=== PATIENT | male | born 1940 | race Caucasian/White ===

== ENCOUNTER 2018-06-05 07:50 | Inpatient (IN) | payer MEDICARE, OTHER, SELFPAY ==
[2018-06-05] VITALS (28 sets, daily range): BP systolic 95–145; BP diastolic 49–89; PULSE 100–127; RESP 12–24; TEMP 36.2–37; O2SAT 92–97; BMI 41.1
--- NOTE | 2018-06-05 08:01 | ED.NAVMDI ---
HPI - Nausea/Vomiting/Diarrhea General Chief complaint: Nausea/Vomiting/Diarrhea Stated complaint: Vomitting since wednesday Time Seen by Provider: 06/05/18 07:58 Source: patient and family Mode of arrival: ambulatory Limitations: no limitations History of Present Illness HPI Narrative: Patient presents with chief complaint of vomiting for the last 2 days. He denies other symptoms. Patient has a history of diabetes, And also states that the patient has a cup at the back of his throat that builds up mucus, and then causes him to vomit the mucus up. She states he has had issues with vomiting mucus for years, and that this was what the doctors told her was the cause. Patient states that he has only been able to take water and his medicines, and that anywhere from 30 sec to 5 min later, everything comes up. This started Wednesday evening at supper time. Patient states that he can always tell if there is any medicine mixed in with what he vomits or not. He has not been eating solid food, but only on occasion sees pill fragments or discoloration of the fluid. Patient states he had a couple of loose stools but has not had any diarrhea. He denies back pain or abdominal pain, other than some strong cramping when he vomits. Patient denies dysuria. No cough or fevers. Patient has not aspirated that he knows of. Patient denies sore throat or upper respiratory symptoms. No chest pain or shortness of breath. No other complaints at this time. No sick contacts. Related Data Home Medications Medication Instructions Recorded Confirmed ferrous sulfate 325 mg PO QDAY #0 08/16/12 06/05/18 finasteride 5 mg PO QDAY #0 08/16/12 06/05/18 lisinopril 10 mg PO QDAY #0 08/16/12 06/05/18 multivitamin 1 tab PO DAILY #0 08/16/12 06/05/18 pioglitazone [Actos] 45 mg PO QDAY #0 08/16/12 06/05/18 sertraline [Zoloft] 50 mg PO QDAY #0 08/16/12 06/05/18 simvastatin [Zocor] 40 mg PO HS #0 08/16/12 06/05/18 triamterene-hydrochlorothiazid 1 tab PO DAILY #0 08/16/12 06/05/18 vitamin B complex 1 cap PO DAILY #0 08/16/12 06/06/18 vitamin E 400 units PO QDAY #0 08/16/12 06/05/18 doxazosin 12 mg PO HS #0 12/23/16 06/05/18 fluticasone-salmeterol [Advair 1 puff INH BID #0 12/23/16 06/06/18 Diskus] insulin aspart U-100 [Novolog 0 unit SQ QIDACHS #0 12/23/16 06/05/18 U-100 Insulin aspart] lidocaine [Lidoderm] 1 patch TOPICAL Q12H #0 12/23/16 06/05/18 metoprolol succinate 50 mg PO BID #0 12/23/16 06/05/18 omeprazole 20 mg PO BID #0 12/23/16 06/05/18 insulin glargine [Lantus Solostar 40 units BID #0 09/07/17 06/05/18 U-100 Insulin] clopidogrel 75 mg tablet 75 mg PO DAILY 03/31/18 06/05/18 loratadine 10 mg tablet 10 mg PO DAILY 03/31/18 06/05/18 Previous Rx's Medication Instructions Recorded oxycodone 10 mg PO QIDP PRN #30 tab 12/23/16 oxycodone [OxyContin] 10 mg PO BID #60 tab 12/23/16 pyridostigmine bromide [Mestinon] 60 mg PO TID #275 tab 09/07/17 fluticasone 50 mcg/actuation nasal 2 spray NASAL DAILY #47.4 gram 01/13/18 spray,suspension Allergies Allergy/AdvReac Type Severity Reaction Status Date / Time ciprofloxacin [From CIPRO] Allergy Severe CAN'T TAKE Verified 06/05/18 08:07 BECAUSE OF MYASTHENIA GRAVIS ibuprofen [IBUPROFEN] Allergy Intermediate Verified 06/05/18 08:07 NSAIDS (Non-Steroidal Allergy Mild Verified 06/05/18 08:07 Anti-Inflamma [NSAIDS (NON-STEROIDAL ANTI-INFLAMMA] Review of Systems Review of Systems All systems reviewed & are unremarkable except as noted in HPI and below Constitutional Denies chills, Denies fever(s), Denies lethargy and Denies weakness Eyes Denies change in vision, Denies eye discharge, Denies irritation and Denies loss of vision ENT Ears, Nose, Mouth, and Throat: Denies change in voice, Denies neck pain and Denies sore throat Cardiovascular Denies chest pain, Denies irregular heart rhythm, Denies lightheadedness, Denies palpitations, Denies dyspnea, Denies dyspnea on exertion and Denies orthopnea Respiratory Denies cough, Denies dyspnea, Denies dyspnea on exertion and Denies wheezing Gastrointestinal Gastrointestinal: Denies abdominal pain, Denies change in bowel habits, Denies diarrhea, Reports nausea and Reports vomiting Genitourinary Denies hematuria, Denies flank pain, Denies urinary incontinence and Denies urinary urgency Musculoskeletal Denies neck pain Integumentary/Breasts Denies pruritus, Denies erythema, Denies rash and Denies wounds Neurologic Denies confusion, Denies loss of vision and Denies weakness Psychiatric Denies anxiety, Denies confusion, Denies depression, Denies homicidal ideation and Denies suicidal ideation Endocrine Denies palpitations Hematologic/Lymphatic Denies easy bruising Allergic/Immunologic Denies wheezing PFSH Medical History Obstructive sleep apnea of adult (Chronic) Primary insomnia (Chronic) Snoring (Chronic) Depression (Acute) Hiatal hernia (Acute) Hypercholesteremia (Acute) Hypertension (Acute) Benign prostatic hyperplasia (Chronic) H/O ischemic heart disease (Chronic) Hearing difficulty of right ear (Chronic) History of lower GI bleeding (Chronic) Hx of upper gastrointestinal hemorrhage (Chronic) Morbid obesity with BMI of 40.0-44.9, adult (Chronic) Myasthenia gravis (Chronic) Spondylolysis, cervical region (Chronic) Spondylosis of lumbar spine (Chronic) Type 2 diabetes mellitus (Chronic) Hx of transient ischemic attack (TIA) (Inactive) Surgical History History of lumbosacral spine surgery (Acute) Hx of cataract removal with insertion of prosthetic lens (Chronic) S/P CABG x 3 (Chronic) Family History: Reviewed 06/05/18 by Morteza Beaulieu MD Social History marital status: details: 50 yrs household members: spouse lives independently: Yes Smoking Status: Former smoker alcohol intake: former Exam Initial Vital Signs Initial Vital Signs: Vital Signs Temperature 97.2 F L 06/05/18 08:01 Pulse Rate 126 H 06/05/18 08:01 Respiratory Rate 20 06/05/18 08:01 Blood Pressure 129/79 06/05/18 08:01 Pulse Oximetry 97 06/05/18 08:01 Const General: cooperative and well developed Nutritional Appearance: well nourished Orientation: alert, awake, oriented x3 and not confused [facility] Head: normocephalic and atraumatic Ears: external ears normal Nose: external nose normal and No nasal discharge Face and sinus: face symmetric Mouth: oral mucosae normal and moist mucous membranes Teeth and gingiva: dentition normal Eyes General: appearance normal, both eyes and all related structures Eyelids: eyelids normal Conjunctivae: conjunctivae normal Sclera: sclerae normal Pupils: PERRL EOM: EOM intact bilaterally Neck Neck: normal visual inspection, trachea midline, No lymphadenopathy, No midline deformity and No JVD Lymphatic: No lymphedema Chest Chest: normal inspection of the chest Resp Effort & Inspection: normal respiratory effort, able to speak in complete sentences, no respiratory distress and no use of accessory muscles Auscultation: clear to auscultation bilaterally, no rales, no rhonchi and no wheezes Cardio Rate: tachycardic Rhythm: regular rhythm Heart Sounds: no click, no gallops, no murmurs and no rubs Pulses: normal peripheral pulses GI Inspection: non-distended Palpation: soft, no hepatosplenomegaly, No guarding, No pulsatile mass and No tender Back/Spine/Pelvis Back: No CVA tenderness Cervical Spine: cervical ROM normal and No pain with cervical ROM Thoracic/Lumbar Spine: thoracic and lumbar spine normal to inspection Skin General: no rashes or lesions noted, No jaundice and No petechiae Neuro General: alert, oriented x3, gait normal and no focal motor deficits Speech: speech normal Extrem General: full ROM, no clubbing, cyanosis or edema, no pedal edema and no calf tenderness Psych Appearance: well kempt Mental Status: mental status grossly normal Attitude: cooperative Thought Content: normal and suicidality Judgment: judgment good Course Course Narrative: Patient remained stable throughout his stay in the emergency department. He was worked up with labs, EKG, chest x-ray, and urinalysis. He was found to be tachycardic on the safety instruction police officer, with a rhythm consistent with atrial flutter. Patient was given a dose of Zofran, as well as a small dose of diltiazem and a L of IV fluids. Patient still complained of nausea so he was then given a dose of Reglan. He continued to have rapid ventricular response, despite the IV fluid and diltiazem, so he was given a larger dose of diltiazem, with no improvement. Patient continued to have heart rate in the 120s. A p.o. challenge was given to the patient with a small amount of water, which the patient promptly vomited. Patient was given a 3rd dose of antiemetics in the form of another dose of Zofran. He was also given IV Lopressor for his rapid ventricular response. At this point, as the patient was not improving, either in his rate in rhythm or in his vomiting, I felt the patient should be admitted to the hospital. He has additionally been found to have a mild UTI, for which we had started him on IV Rocephin. I spoke with Dr. Beaulieu, who was on-call for the hospitalist service, and he agreed to admit the patient to his service. manager cancer interpretation at 8:24 a.m.: Regular ventricular rhythm with a rate in the 120s, narrow complex, saw to baseline. Consistent with atrial flutter with rapid ventricular response as interpreted by ED MD. Orders Ordered: ED Orders 06/06/18 XR acute abdomen series Urgent 06/06/18 04:44 Basic Metabolic Panel Routine Complete Blood Count AUTO DIFF Routine Acetaminophen (Tylenol) 650 mg PO Q6HR PRN PRN Reason: As Needed for Fever/Mild Pain Clopidogrel Bisulfate (Plavix) 75 mg PO DAILY AL[facility] Dextrose (D50w) 25 gm IV PRN PRN; Protocol PRN Reason: Hypoglycemia Doxazosin Mesylate (Cardura) 12 mg PO BEDTIME ALESHA Last Admin: 06/05/18 21:24 Dose: Not Given Enoxaparin Sodium (Lovenox) 40 mg SUBCUT DAILY [facility] Ferrous Sulfate (Ferrous Sulfate) 325 mg PO DAILY AL[facility]HA Finasteride (Proscar) 5 mg PO DAILY [facility] Esmolol HCl (Brevibloc) 2.5 gm in 250 mls @ 0 mls/hr IV TITRATE ALESHA; Protocol Last Admin: 06/06/18 06:25 Dose: 160 mcg/kg/min, 139.344 mls/hr Titration: 06/06/18 06:25 Dose: 160 mcg/kg/min, 139.344 mls/hr Titration: 06/06/18 06:16 Dose: 160 mcg/kg/min, 139.344 mls/hr Admin: 06/06/18 04:42 Dose: 155 mcg/kg/min, 134.99 mls/hr Titration: 06/06/18 04:23 Dose: 145 mcg/kg/min, 126.281 mls/hr Admin: 06/06/18 02:24 Dose: 145 mcg/kg/min, 126.281 mls/hr Titration: 06/06/18 02:24 Dose: 145 mcg/kg/min, 126.281 mls/hr Titration: 06/06/18 01:40 Dose: 145 mcg/kg/min, 126.281 mls/hr Admin: 06/06/18 00:32 Dose: 150 mcg/kg/min, 130.635 mls/hr Titration: 06/06/18 00:30 Dose: 150 mcg/kg/min, 130.635 mls/hr Admin: 06/05/18 22:35 Dose: 150 mcg/kg/min, 130.635 mls/hr Titration: 06/05/18 22:31 Dose: 150 mcg/kg/min, 130.635 mls/hr Admin: 06/05/18 20:36 Dose: 150 mcg/kg/min, 130.635 mls/hr Titration: 06/05/18 20:28 Dose: 150 mcg/kg/min, 130.635 mls/hr Admin: 06/05/18 18:33 Dose: 150 mcg/kg/min, 130.635 mls/hr Titration: 06/05/18 18:33 Dose: 100 mcg/kg/min, 0 mls/hr Titration: 06/05/18 17:00 Dose: 100 mcg/kg/min, 0 mls/hr Admin: 06/05/18 14:50 Dose: 50 mcg/kg/min, 43.545 mls/hr Dextrose/Sodium Chloride (Dextrose 5%-0.9% Ns) 1,000 mls @ 100 mls/hr IV CONT ALESHA Last Admin: 06/06/18 02:24 Dose: 100 mls/hr Infusion: 06/06/18 02:24 Dose: 100 mls/hr Admin: 06/05/18 16:59 Dose: 100 mls/hr Ceftriaxone Sodium/Dextrose (Rocephin) 1 gm in 50 mls @ 100 mls/hr IV Q24H [facility] Insulin Aspart (Novolog Flexpen) 5 unit SUBCUT ACHS [facility] Last Admin: 06/05/18 21:24 Dose: Not Given Admin: 06/05/18 17:05 Dose: 5 unit Insulin Glargine (Lantus Solostar (Pen)) 40 unit SUBCUT BID [facility] Last Admin: 06/05/18 22:07 Dose: 40 unit Levalbuterol HCl (Xopenex) 1.25 mg INH RTBID [facility] Last Admin: 06/06/18 08:03 Dose: 1.25 mg Admin: 06/05/18 20:58 Dose: 1.25 mg Lidocaine (Lidoderm) 1 each TOP Q24H [facility] Last Admin: 06/05/18 17:04 Dose: Not Given Lidocaine (Lidoderm (Remove Patch)) 1 each TOP 0500 [facility] Last Admin: 06/06/18 07:54 Dose: Lisinopril (Zestril) 10 mg PO DAILY [facility] Loratadine (Claritin) 10 mg PO DAILY [facility] Metoprolol Succinate (Toprol Xl) 100 mg PO BID [facility] Last Admin: 06/05/18 18:59 Dose: 100 mg Morphine Sulfate (Morphine Sulfate) 2 mg IV Q6H PRN PRN Reason: Pain, Severe (7-10) Last Admin: 06/06/18 06:25 Dose: 2 mg Admin: 06/06/18 00:37 Dose: 2 mg Multivitamins (Tab-A-Edgar) 1 tab PO DAILY [facility] Stored In Pharmacy 0 each PO . [facility] Nystatin (Nystop) 1 applic TOP BID [facility] Last Admin: 06/05/18 21:25 Dose: Ondansetron HCl (Zofran) 4 mg IV Q4HR PRN PRN Reason: Nausea And Vomiting Last Admin: 06/06/18 04:42 Dose: 4 mg Admin: 06/05/18 17:34 Dose: 4 mg Pantoprazole Sodium (Protonix) 40 mg IV DAILY [facility] Last Admin: 06/05/18 21:27 Dose: 40 mg Pioglitazone HCl (Actos) 45 mg PO DAILY [facility] Pyridostigmine [place] (Mestinon) 60 mg PO TID [facility] Last Admin: 06/05/18 22:08 Dose: Not Given Sertraline HCl (Zoloft) 50 mg PO DAILY [facility] Simvastatin (Zocor) 40 mg PO BEDTIME [facility] Last Admin: 06/05/18 21:25 Dose: Not Given Vitamin E (Vitamin E) 400 unit PO DAILY [facility] Discontinued Medications Diltiazem HCl (Cardizem) 10 mg IV NOW ONE Stop: 06/05/18 08:28 Last Admin: 06/05/18 08:44 Dose: 10 mg Diltiazem HCl (Cardizem) 20 mg IV NOW ONE Stop: 06/05/18 10:00 Last Admin: 06/05/18 10:09 Dose: 20 mg Diltiazem HCl (Cardizem) 20 mg IV NOW ONE Stop: 06/05/18 12:17 Last Admin: 06/05/18 12:38 Dose: 20 mg Diltiazem HCl (Cardizem) 25 mg IV NOW ONE Stop: 06/05/18 13:21 Last Admin: 06/05/18 15:06 Dose: Hydromorphone HCl (Dilaudid) 1 mg IV NOW ONE Stop: 06/05/18 08:59 Last Admin: 06/05/18 09:02 Dose: 1 mg Sodium Chloride (Normal Saline 0.9%) 1,000 mls @ 1,000 mls/hr IV BOLUS ONE Stop: 06/05/18 08:58 Last Infusion: 06/05/18 09:56 Dose: 0 mls/hr Admin: 06/05/18 08:44 Dose: 1,000 mls/hr Diltiazem HCl 125 mg/ Dextrose 125 mls @ 5 mls/hr IV TITRATE ALESHA; Protocol Last Admin: 06/05/18 15:06 Dose: Ceftriaxone Sodium/Dextrose (Rocephin) 2 gm in 50 mls @ 100 mls/hr IV NOW ONE Stop: 06/05/18 13:53 Last Admin: 06/05/18 15:03 Dose: Lidocaine (Lidoderm) 1 each TOP Q12H [facility] Last Admin: 06/05/18 22:11 Dose: Metoclopramide HCl (Reglan) 10 mg IV NOW ONE Stop: 06/05/18 11:20 Last Admin: 06/05/18 12:17 Dose: 10 mg Metoprolol Tartrate (Lopressor) 5 mg IV NOW ONE Stop: 06/05/18 13:49 Last Admin: 06/05/18 13:53 Dose: 5 mg Ondansetron HCl (Zofran) 4 mg IV NOW ONE Stop: 06/05/18 08:00 Last Admin: 06/05/18 08:44 Dose: 4 mg Ondansetron HCl (Zofran) 4 mg IV NOW ONE Stop: 06/05/18 11:52 Last Admin: 06/05/18 12:17 Dose: 4 mg Oxycodone HCl (Oxycontin) 10 mg PO BID [facility] Last Admin: 06/05/18 22:08 Dose: Not Given Oxycodone HCl (Percolone) 10 mg PO QID PRN PRN Reason: Pain, Mild (1-3) Last Admin: 06/05/18 22:50 Dose: 10 mg Pantoprazole Sodium (Protonix) 20 mg PO BID [facility] Vital Signs - 8 hr 06/06/18 02:00 06/06/18 04:00 06/06/18 06:00 Temperature 98.7 F 98.2 F Pulse Rate 110 H 122 H 114 H Respiratory Rate 15 14 26 H Blood Pressure 132/72 115/52 L 140/81 Pulse Oximetry 93 95 94 06/06/18 07:59 06/06/18 08:06 Temperature 98.5 F Pulse Rate 107 H Respiratory Rate 17 Blood Pressure 122/71 Pulse Oximetry 93 97 MDM - Nausea/Vomiting/Diarrhea Medical Records Attestation: I reviewed the patient's medical records. Lab Data Attestation: I reviewed the patient's lab results. Result diagrams: 06/06/18 04:44 06/06/18 04:44 Lab Results 06/05/18 06/05/18 06/05/18 Range/Units 08:30 08:30 11:14 WBC 14.1 H (4.5-11.0) X10^3/uL RBC 4.44 L (4.5-5.9) X10^6/uL Hgb 13.6 (13.5-17.5) g/dL Hct 40.9 L (41-53) % MCV 92.2 (80-100) fL MCH 30.6 (26-34) PG MCHC 33.2 (30-36) % RDW 14.3 (11.6-14.8) % Plt Count 235 (150-400) X10^3/uL Neut % (Auto) 82.0 H (50-75) % Lymph % (Auto) 9.7 L (25-40) % [place] % (Auto) 7.8 (3-14) % Eos % (Auto) 0.2 L (2-4) % Baso % (Auto) 0.3 (0-2) % Neut # (Auto) 35928 H (5141-2338) /uL Total Counted Seg Neutrophils % (38-70) % Lymphocytes % (Manual) (25-45) % Monocytes % (Manual) (2-11) % Eosinophils % (Manual) (2-4) % Neutrophils # (Manual) (4399-5426) /uL RBC Morphology Sodium 140 (137-145) mmol/L Potassium 3.7 (3.4-5.1) mmol/L Chloride 102 (98-107) mmol/L Carbon Dioxide 26 (22-32) mmol/L BUN 28 H (9-20) mg/dL Creatinine 1.20 (0.66-1.25) mg/dL Estimated GFR 58.6 L (>60) mL/min BUN/Creatinine Ratio 23.3 H (6-22) Glucose 180 H (80-110) mg/dL Calcium 9.3 (8.4-10.2) mg/dL Total Bilirubin 1.1 (0.2-1.3) mg/dL AST 40 (17-59) IU/L ALT 29 (21-72) IU/L Alkaline Phosphatase 78 (38-126) U/L Troponin I (0.01-0.034) ng/mL Total Protein 8.1 (6.3-8.2) g/dL Albumin 4.9 (3.5-5.0) g/dL Globulin 3.2 (1.7-4.1) g/dL Albumin/Globulin Ratio 1.5 (1.0-2.8) Urine Color Yellow Urine Appearance Clear Urine pH 5.0 (4.5-8.0) Ur Specific [place] 1.025 (1.000-1.035) Urine Protein 1+ H (Negative) Urine Glucose (UA) Negative (Normal) g/dL Urine Ketones Trace H (NEGATIVE) Urine Occult Blood 1+ H (Negative) Urine Nitrate Negative (Negative) Urine Bilirubin 1+ H (NEGATIVE) Urine Ictotest Negative (Negative) Urine Urobilinogen 0.2 (0.2) E.U./dL Ur Leukocyte Esterase Trace H (NEGATIVE) Urine RBC 5-10/hpf H (0-5/HPF) Urine WBC 5-10/hpf H (0-5/HPF) Ur Squamous Epith Cells 1-5 /hpf Urine Bacteria Few (2-10) H (None) Hyaline Casts 10-30/lpf (None) Granular Casts 1-5/lpf (None) Ur Culture Indicated? Specimen cultured Micro UA Comment Not Reportable Nasal Screen MRSA (PCR) (Negative) Influenza A & B (PCR) (Negative) 06/05/18 06/05/18 06/06/18 Range/Units 15:00 17:00 04:44 WBC 16.1 H (4.5-11.0) X10^3/uL RBC 4.28 L (4.5-5.9) X10^6/uL Hgb 13.1 L (13.5-17.5) g/dL Hct 40.2 L (41-53) % MCV 94.0 (80-100) fL MCH 30.5 (26-34) PG MCHC 32.5 (30-36) % RDW 14.5 (11.6-14.8) % Plt Count 224 (150-400) X10^3/uL Neut % (Auto) Not Reportable (50-75) % Lymph % (Auto) Not Reportable (25-40) % [place] % (Auto) Not Reportable (3-14) % Eos % (Auto) Not Reportable (2-4) % Baso % (Auto) Not Reportable (0-2) % Neut # (Auto) (5359-2847) /uL Total Counted 100 Seg Neutrophils % 67.0 (38-70) % Lymphocytes % (Manual) 17.0 L (25-45) % Monocytes % (Manual) 13.0 H (2-11) % Eosinophils % (Manual) 3.0 (2-4) % Neutrophils # (Manual) 07890 H (3870-7785) /uL RBC Morphology Normal morphology Sodium (137-145) mmol/L Potassium (3.4-5.1) mmol/L Chloride (98-107) mmol/L Carbon Dioxide (22-32) mmol/L BUN (9-20) mg/dL Creatinine (0.66-1.25) mg/dL Estimated GFR (>60) mL/min BUN/Creatinine Ratio (6-22) Glucose (80-110) mg/dL Calcium (8.4-10.2) mg/dL Total Bilirubin (0.2-1.3) mg/dL AST (17-59) IU/L ALT (21-72) IU/L Alkaline Phosphatase (38-126) U/L Troponin I 0.028 (0.01-0.034) ng/mL Total Protein (6.3-8.2) g/dL Albumin (3.5-5.0) g/dL Globulin (1.7-4.1) g/dL Albumin/Globulin Ratio (1.0-2.8) Urine Color Urine Appearance Urine pH (4.5-8.0) Ur Specific [place] (1.000-1.035) Urine Protein (Negative) Urine Glucose (UA) (Normal) g/dL Urine Ketones (NEGATIVE) Urine Occult Blood (Negative) Urine Nitrate (Negative) Urine Bilirubin (NEGATIVE) Urine Ictotest (Negative) Urine Urobilinogen (0.2) E.U./dL Ur Leukocyte Esterase (NEGATIVE) Urine RBC (0-5/HPF) Urine WBC (0-5/HPF) Ur Squamous Epith Cells Urine Bacteria (None) Hyaline Casts (None) Granular Casts (None) Ur Culture Indicated? Micro UA Comment Nasal Screen MRSA (PCR) Negative for mrsa (Negative) Influenza A & B (PCR) Negative (Negative) 06/06/18 Range/Units 04:44 WBC (4.5-11.0) X10^3/uL RBC (4.5-5.9) X10^6/uL Hgb (13.5-17.5) g/dL Hct (41-53) % MCV (80-100) fL MCH (26-34) PG MCHC (30-36) % RDW (11.6-14.8) % Plt Count (150-400) X10^3/uL Neut % (Auto) (50-75) % Lymph % (Auto) (25-40) % [place] % (Auto) (3-14) % Eos % (Auto) (2-4) % Baso % (Auto) (0-2) % Neut # (Auto) (5695-8370) /uL Total Counted Seg Neutrophils % (38-70) % Lymphocytes % (Manual) (25-45) % Monocytes % (Manual) (2-11) % Eosinophils % (Manual) (2-4) % Neutrophils # (Manual) (9469-6896) /uL RBC Morphology Sodium 141 (137-145) mmol/L Potassium 4.1 (3.4-5.1) mmol/L Chloride 105 (98-107) mmol/L Carbon Dioxide 25 (22-32) mmol/L BUN 24 H (9-20) mg/dL Creatinine 1.10 (0.66-1.25) mg/dL Estimated GFR > 60.0 (>60) mL/min BUN/Creatinine Ratio 21.8 (6-22) Glucose 143 H (80-110) mg/dL Calcium 8.6 (8.4-10.2) mg/dL Total Bilirubin (0.2-1.3) mg/dL AST (17-59) IU/L ALT (21-72) IU/L Alkaline Phosphatase (38-126) U/L Troponin I (0.01-0.034) ng/mL Total Protein (6.3-8.2) g/dL Albumin (3.5-5.0) g/dL Globulin (1.7-4.1) g/dL Albumin/Globulin Ratio (1.0-2.8) Urine Color Urine Appearance Urine pH (4.5-8.0) Ur Specific [place] (1.000-1.035) Urine Protein (Negative) Urine Glucose (UA) (Normal) g/dL Urine Ketones (NEGATIVE) Urine Occult Blood (Negative) Urine Nitrate (Negative) Urine Bilirubin (NEGATIVE) Urine Ictotest (Negative) Urine Urobilinogen (0.2) E.U./dL Ur Leukocyte Esterase (NEGATIVE) Urine RBC (0-5/HPF) Urine WBC (0-5/HPF) Ur Squamous Epith Cells Urine Bacteria (None) Hyaline Casts (None) Granular Casts (None) Ur Culture Indicated? Micro UA Comment Nasal Screen MRSA (PCR) (Negative) Influenza A & B (PCR) (Negative) Point of Care Testing Glucose POC 143 ECG Data Attestation: I personally reviewed and interpreted this ECG as follows: ( see below) Interpretation: 12 lead EKG performed at 8:06 a.m. on June 05, 2018: Regular ventricular rhythm with a rate of 125 beats per minute FL interval undetectable QRS duration 132 milliseconds QTC interval [address] T wave changes Intraventricular conduction delay Interpretation: Atrial flutter with rapid ventricular response; intraventricular conducti.on delay; possible lateral [place], probably old; inferior [place]; probably old. Abnormal EKG as interpreted by ED MD Discharge Plan Departure Patient Disposition: Admitted As Inpatient Clinical Impression: Atrial fibrillation with RVR, Intractable vomiting, Acute UTI Discharge Date/Time: 06/05/18 14:40 Interventions: ED Discharge Assessment Last Done: 06/05/18 14:22 Admit Date/Time: 06/05/18 13:34 Admit Provider: Morteza Beaulieu
--- NOTE | 2018-06-05 08:27 | DI.RAD.S_ITS ---
PROCEDURE: XR CHEST 1V INDICATIONS: vomiting, possible aspiration TECHNIQUE: One view of the chest was acquired. COMPARISON: [facility], , CHEST 1 VIEW, 12/22/2016, 21:56. [facility], , CHEST 2 VIEW, 11/30/2016, 17:06. FINDINGS: Surgical changes and devices: Sternotomy wires, presumed prior CABG. Lungs and pleura: No pleural effusions or pneumothorax. Lungs are unchanged with a chronic interstitial prominence and no pneumonia or aspiration is found.. Mediastinum: Mediastinal contours appear normal. Heart size is normal. Bones and chest wall: No suspicious bony lesions. Overlying soft tissues appear unremarkable. IMPRESSION: Prior CABG, chronic interstitial prominence, no definite acute disease. No aspiration seen. Dictated by: Mulugeta Snow M.D. on 06/05/2018 at 9:02 Approved by: Mulugeta Snow M.D. on 06/05/2018 at 9:03
[2018-06-05 08:42] LABS: Add Manual Diff / Slide Review NO; Basophils Percent Auto 0.3 % (0-2); Eosinophils Percent Auto 0.2 % (2-4); Hematocrit 40.9 % (41-53); Hemoglobin 13.6 g/dL (13.5-17.5); Lymphocytes Percent Auto 9.7 % (25-40); Mean Corpuscular HGB Conc 33.2 % (30-36); Mean Corpuscular Hemoglobin 30.6 PG (26-34); Mean Corpuscular Volume 92.2 fL (80-100); Monocytes Percent Auto 7.8 % (3-14); Neutrophils Absolute Auto 11500 /uL (3000-5900); Platelet Count 235 X10^3/uL (150-400); Red Blood Cell Count 4.44 X10^6/uL (4.5-5.9); Red Cell Distribution Width 14.3 % (11.6-14.8); White Blood Cell Count 14.1 X10^3/uL (4.5-11.0)
[2018-06-05] MEDS: SODIUM CHLORIDE 0.9% 1,000 ML 1000 ML IV (08:44)
[2018-06-05] MEDS: dilTIAZem 5 MG/ML SDV 10 MG IV (08:44)
[2018-06-05] MEDS: ONDANSETRON 4 MG/2 ML INJ IV ×3 (08:44→17:34)
--- NOTE | 2018-06-05 08:50 | PC.NURSE ---
pt reports, body aches, nausea with vomiting and soft stools, denies fever, chills, with some cough had flu shot last month. denies other sxs.
[2018-06-05 08:52] LABS: Alanine Aminotransferase 29 IU/L (21-72); Albumin 4.9 g/dL (3.5-5.0); Albumin Globulin Ratio 1.5 (1.0-2.8); Alkaline Phosphatase 78 U/L (38-126); Aspartate Aminotransferase 40 IU/L (17-59); BUN Creatinine Ratio 23.3 (6-22); Bilirubin Total 1.1 mg/dL (0.2-1.3); Blood Urea Nitrogen 28 mg/dL (9-20); Calcium 9.3 mg/dL (8.4-10.2); Carbon Dioxide 26 mmol/L (22-32); Chloride 102 mmol/L (98-107); Estimated Glomerular Filt Rate 58.6 mL/min (>60); Globulin 3.2 g/dL (1.7-4.1); Glucose 180 mg/dL (80-110); HEMOLYSIS < 15 (0-50); Potassium 3.7 mmol/L (3.4-5.1); Sodium 140 mmol/L (137-145); Total Protein 8.1 g/dL (6.3-8.2)
[2018-06-05] MEDS: HYDROMORPHONE 1 MG INJ IV (09:02)
--- NOTE | 2018-06-05 09:07 | PC.NURSE ---
pt reports, generalized body soreness with movement, pt unable to keep his oxycodone due to nausea for a couple of days.
[2018-06-05] MEDS: dilTIAZem 5 MG/ML SDV 20 MG IV ×2 (10:09→12:38)
[2018-06-05 11:17] LABS: Appearance Urine UA CLEAR; Bilirubin Urine UA 1+ (NEGATIVE); Color Urine UA YELLOW; Glucose Urine UA NEGATIVE (Normal); Ketones Urine UA TRACE (NEGATIVE); Leukocyte Esterase Urine UA TRACE (NEGATIVE); Nitrite Urine UA NEGATIVE (Negative); Occult Blood Urine UA 1+ (Negative); Protein Urine UA 1+ (Negative); Specific Gravity Urine UA 1.025 (1.000-1.035); Urobilinogen Urine UA 0.2 E.U./dL (0.2)
[2018-06-05 11:32] LABS: Bacteria Urine Few (2-10); Culture Indicated Urine Specimen Cultured; Granular Casts Urine 1-5/LPF; Hyaline Casts Urine 10-30/LPF; Ictotest Urine Negative (Negative); RBC Urine 5-10/HPF (0-5/HPF); Squamous Epithelial Cell Urine 1-5 /HPF; WBC Urine 5-10/HPF (0-5/HPF)
[2018-06-05] MEDS: METOCLOPRAMIDE 10 MG/2 ML INJ IV (12:17)
--- NOTE | 2018-06-05 12:26 | PC.NURSE ---
pt complained of chest pain the kind that brought me in today repeat EKG done and given to Dr. Yee. pt stable vs unchanged.
[2018-06-05] MEDS: METOPROLOL TARTRATE 5 MG/5 ML INJ IV (13:53)
[2018-06-05] MEDS: ESMOLOL 2.5 GM/250 ML IV.SOLN IV ×4 (14:50→22:35)
[2018-06-05 16:08] LABS: Influenza A and B by PCR Rapid Negative (Negative)
--- NOTE | 2018-06-05 16:49 | P.HP_ITS ---
History of Present Illness Date Patient Seen: 06/05/18 Chief complaint: Vomitting since wednesday Narrative: This is a 77-year-old male who has been vomiting for about 4 days. It began in the evening and has led to him not being able to keep down his medication etc. There has been no diarrhea, coughing, abdominal pain, fever, chills or rectal bleeding. The UA is moderately abnormal suggestive of a UTI and he is in atrial fibrillation with rapid ventricular response possibly related to not being able to retain the metoprolol that he usually takes. No other cause of the vomiting/illnesses can be immediately identified this evening. He lives in [place] with his and attends with Dr. Pugh An esmolol drip substantially reduces his heart rate and he appears to be otherwise stable without vomiting after admission to the ICU. IV fluid and antiemetics seem to be fairly effective for him. The 1st doses of Zofran and Reglan however did not control his vomiting, thus the admission. An EKG and Troponin are pending but there have been no signs of an acute ND or ACS. He is not aware of having had atrial fibrillation before and it is not on his populated list. Patient History Medical History Obstructive sleep apnea of adult (Chronic) Primary insomnia (Chronic) Snoring (Chronic) Benign prostatic hyperplasia (Chronic) H/O ischemic heart disease (Chronic) Hearing difficulty of right ear (Chronic) History of lower GI bleeding (Chronic) Hx of upper gastrointestinal hemorrhage (Chronic) Morbid obesity with BMI of 40.0-44.9, adult (Chronic) Myasthenia gravis (Chronic) Spondylolysis, cervical region (Chronic) Spondylosis of lumbar spine (Chronic) Type 2 diabetes mellitus (Chronic) Hx of transient ischemic attack (TIA) (Inactive) Surgical History History of lumbosacral spine surgery (Acute) Hx of cataract removal with insertion of prosthetic lens (Chronic) S/P CABG x 3 (Chronic) Family & Social History Family History: Reviewed 06/05/18 by Morteza Beaulieu MD Social History: household members spouse Prior Living Arrangements Mobile home lives independently Yes Safety & Behavioral: Feels Safe in Current Yes Environment Been Physically Hurt or No Threatened By a Person Suicidal Ideation Description None Tobacco & Substance use: Smoking Status Former smoker alcohol intake former alcohol intake frequency 0-2 drinks per day Substance Use Type does not use Meds Home Medications Medication Instructions Recorded Confirmed Type CA PANTOTHENATE/FOLIC ACID/VIT 1 tab PO QDAY #0 08/16/12 06/05/18 History (MULTIVITAMIN) FERROUS SULFATE 325 mg PO QDAY #0 08/16/12 06/05/18 History VITAMIN B COMPLEX (Vitamin B #0 08/16/12 History Complex) Vitamin E (VITAMIN E) 400 units PO QDAY #0 08/16/12 06/05/18 History finasteride 5 mg PO QDAY #0 08/16/12 06/05/18 History lisinopril 10 mg PO QDAY #0 08/16/12 06/05/18 History pioglitazone [Actos] 45 mg PO QDAY #0 08/16/12 06/05/18 History sertraline [Zoloft] 50 mg PO QDAY #0 08/16/12 06/05/18 History simvastatin [Zocor] 40 mg PO HS #0 08/16/12 06/05/18 History triamterene-hydrochlorothiazid 1 tab PO DAILY #0 08/16/12 06/05/18 History doxazosin 12 mg PO HS #0 12/23/16 06/05/18 History fluticasone-salmeterol [Advair 1 puff INH BID #0 12/23/16 History Diskus] insulin aspart U-100 [Novolog 0 unit SQ QIDACHS #0 12/23/16 06/05/18 History U-100 Insulin aspart] lidocaine [Lidoderm] 1 patch TOPICAL Q12H #0 12/23/16 06/05/18 History metoprolol succinate 50 mg PO BID #0 12/23/16 06/05/18 History omeprazole 20 mg PO BID #0 12/23/16 06/05/18 History oxycodone 10 mg PO QIDP PRN #30 tab 12/23/16 06/05/18 Rx oxycodone [OxyContin] 10 mg PO BID #60 tab 12/23/16 06/05/18 Rx insulin glargine [Lantus Solostar 40 units BID #0 09/07/17 06/05/18 History U-100 Insulin] pyridostigmine bromide [Mestinon] 60 mg PO TID #275 tab 09/07/17 06/05/18 Rx fluticasone 50 mcg/actuation nasal 2 spray NASAL DAILY #47.4 gram 01/13/18 Rx spray,suspension clopidogrel 75 mg tablet 75 mg PO DAILY 03/31/18 06/05/18 History loratadine 10 mg tablet 10 mg PO DAILY 03/31/18 06/05/18 History Allergies Allergy/AdvReac Type Severity Reaction Status Date / Time ciprofloxacin [From CIPRO] Allergy Severe CAN'T TAKE Verified 06/05/18 08:07 BECAUSE OF MYASTHENIA GRAVIS ibuprofen [IBUPROFEN] Allergy Intermediate Verified 06/05/18 08:07 NSAIDS (Non-Steroidal Allergy Mild Verified 06/05/18 08:07 Anti-Inflamma [NSAIDS (NON-STEROIDAL ANTI-INFLAMMA] Review of Systems Review of Systems Positive for vomiting, nausea, weakness. Negative for chest pain, palpitations , chest pain, abdominal pain, diarrhea, bleeding, dysuria, joint pain above his chronic levels, seizures, headaches, new allergies, fevers All systems reviewed & are unremarkable except as noted in HPI and below Exam Vital Signs (past 8 hours): - 06/05/18 08:01 06/05/18 08:44 06/05/18 09:02 Temperature 97.2 F L 98.4 F Pulse Rate 126 H 124 H Respiratory Rate 20 Blood Pressure 129/79 127/72 Blood Pressure [Left Arm] Pulse Oximetry 97 06/05/18 09:04 06/05/18 09:55 06/05/18 10:09 Temperature 98.1 F Pulse Rate 106 H 124 H 124 H Respiratory Rate 14 16 Blood Pressure 120/65 Blood Pressure [Left Arm] 127/72 Pulse Oximetry 95 97 06/05/18 10:42 06/05/18 11:00 06/05/18 11:30 Temperature Pulse Rate 107 H 124 H 123 H Respiratory Rate 24 19 15 Blood Pressure Blood Pressure [Left Arm] 121/61 121/61 120/62 Pulse Oximetry 94 06/05/18 12:00 06/05/18 12:30 06/05/18 12:38 Temperature Pulse Rate 124 H 125 H 123 H Respiratory Rate 16 18 Blood Pressure 143/56 H Blood Pressure [Left Arm] 145/65 H 143/56 H Pulse Oximetry 97 96 06/05/18 13:00 06/05/18 13:30 06/05/18 14:00 Temperature Pulse Rate 127 H 127 H 124 H Respiratory Rate 18 12 18 Blood Pressure Blood Pressure [Left Arm] 127/60 133/68 110/89 Pulse Oximetry 92 93 93 06/05/18 15:26 Temperature 98.3 F Pulse Rate 123 H Respiratory Rate 20 Blood Pressure 123/63 Blood Pressure [Left Arm] Pulse Oximetry Oxygen Delivery Method Room Air Narrative Exam Narrative: Alert and oriented x3. No apparent distress. Pupils are equally round and reactive to light and accommodation. Extraocular muscles are intact. Sclerae are pink and nonicteric. Throat looks normal. No lymph nodes are felt head, neck, supraclavicular area. No carotid bruits are heard. JVD is less 6 cm. There is no thyromegaly. Heart is tachycardic, regular rhythm with early beats. Not classically AFib to my ear. Lungs clear to auscultation bilaterally. Abdomen soft, mildly tender diffusely, bowel sounds active, no organomegaly. Extremities have no ankle edema. Neuro, cranial nerves 2-12 tested intact motor is 4/5 throughout, DTRs are symmetrical, there is no tremor, Babinski's are downgoing bilaterally, balance and gait are not tested. Skin without rash or jaundice. Objective Labs Result Diagrams: 06/05/18 08:30 06/05/18 08:30 Labs: Laboratory Results - last 24 hr 06/05/18 06/05/18 06/05/18 08:30 08:30 11:14 WBC 14.1 H RBC 4.44 L Hgb 13.6 Hct 40.9 L MCV 92.2 MCH 30.6 MCHC 33.2 RDW 14.3 Plt Count 235 Neut % (Auto) 82.0 H Lymph % (Auto) 9.7 L [place] % (Auto) 7.8 Eos % (Auto) 0.2 L Baso % (Auto) 0.3 Neut # (Auto) 26702 H Sodium 140 Potassium 3.7 Chloride 102 Carbon Dioxide 26 BUN 28 H Creatinine 1.20 Estimated GFR 58.6 L BUN/Creatinine Ratio 23.3 H Glucose 180 H Calcium 9.3 Total Bilirubin 1.1 AST 40 ALT 29 Alkaline Phosphatase 78 Total Protein 8.1 Albumin 4.9 Globulin 3.2 Albumin/Globulin Ratio 1.5 Urine Color Yellow Urine Appearance Clear Urine pH 5.0 Ur Specific [place] 1.025 Urine Protein 1+ H Urine Glucose (UA) Negative Urine Ketones Trace H Urine Occult Blood 1+ H Urine Nitrate Negative Urine Bilirubin 1+ H Urine Ictotest Negative Urine Urobilinogen 0.2 Ur Leukocyte Esterase Trace H Urine RBC 5-10/hpf H Urine WBC 5-10/hpf H Ur Squamous Epith Cells 1-5 /hpf Urine Bacteria Few (2-10) H Hyaline Casts 10-30/lpf Granular Casts 1-5/lpf Ur Culture Indicated? Specimen cultured Micro UA Comment Not Reportable Influenza A & B (PCR) 06/05/18 15:00 WBC RBC Hgb Hct MCV MCH MCHC RDW Plt Count Neut % (Auto) Lymph % (Auto) [place] % (Auto) Eos % (Auto) Baso % (Auto) Neut # (Auto) Sodium Potassium Chloride Carbon Dioxide BUN Creatinine Estimated GFR BUN/Creatinine Ratio Glucose Calcium Total Bilirubin AST ALT Alkaline Phosphatase Total Protein Albumin Globulin Albumin/Globulin Ratio Urine Color Urine Appearance Urine pH Ur Specific [place] Urine Protein Urine Glucose (UA) Urine Ketones Urine Occult Blood Urine Nitrate Urine Bilirubin Urine Ictotest Urine Urobilinogen Ur Leukocyte Esterase Urine RBC Urine WBC Ur Squamous Epith Cells Urine Bacteria Hyaline Casts Granular Casts Ur Culture Indicated? Micro UA Comment Influenza A & B (PCR) Positive, type a A Assessment & Plan (1) Atrial fibrillation with RVR: Problem details: Continue IV esmolol, probably over night and transition to other approaches in the morning if he remains stable. Echocardiogram to be ordered This is probably a result of the vomiting and not the primary cause but it would be prudent to do a troponin and rule out acute coronary syndrome. Current visit: Yes Status: Acute (2) Intractable vomiting: Problem details: Continue IV fluids and antiemetics. So far he seems to be tolerating oral intake now that he has been admitted. The influenza a test is officially reported as negative but shows up in a confusing/contradictory fashion on this document as possibly positive. That will need to be clarified. Qualifiers: Nausea presence: with nausea Vomiting type: unspecified Qualified Code (s): R11.2 - Nausea with vomiting, unspecified Current visit: Yes Status: Acute (3) Acute UTI: Problem details: Continue IV Rocephin 1 g Q 24 hr, pending urine culture results Current visit: Yes Status: Acute (4) Obstructive sleep apnea of adult: Problem details: 2004 Current visit: No Status: Chronic (5) Myasthenia gravis: Problem details: Continue routine pyridostigmine Current visit: Yes Status: Acute Quality VTE Deep Vein Thrombosis/Pulmonary Embolism Present on Admission: No
[2018-06-05] MEDS: DEXTROSE 5%-0.9% NS 1,000 ML 100 ML IV (16:59)
[2018-06-05] MEDS: INSULIN ASPART 100 UNIT/ML INSULN PEN SUBCUT (17:05)
[2018-06-05 17:44] LABS: Troponin I 0.028 ng/mL (0.01-0.034)
--- NOTE | 2018-06-05 17:45 | PC.NURSE ---
Addendum entered by Pepper Adan R.N. 06/05/18 23:02: 2245 - Pt sitting on edge of bed. C/o pain to bilateral hips. Attempt to given percolone IR and have pt dissolve under tongue rather than swallow. Pt held under tongue for a couple of minutes before saying that they were not going anywhere, and swallowing the pills. Pt with immediate gag and emesis of approximately 50cc of clear liquid. No visible pills in emesis. VIDEO PRODUCTION ASSISTANT notified. Original Note: Addendum entered by Pepper Adan R.N. 06/05/18 20:39: 1915 - Pt sitting up on edge of bed, moist cough. Anterior airway wheezing. Pt unable to recall type of home inhaler. States that it is not purple, it is a red puffer, not listed on home med list. VIDEO PRODUCTION ASSISTANT notified. Order for RT eval and treat. Room air sats 95% at rest. RT also notified that home C-pap in room. Also, reviewed esmolol gtt, yeast-type rash to groin, and inability to take PO meds at this time r/t nausea and emesis. Original Note: Addendum entered by Pepper Adan R.N. 06/05/18 19:19: 1900 - Attempt to give pt his PO metoprolol while nausea medication is on board. Pt states I swallow and it feels like it doesn't go down. 1914 - pt with 75cc of clear emesis and small amount of sputum. No visible residual pill. Pt on 150mcg/kg/min of esmolol. HR 94, BP 109/56. Original Note: Addendum entered by Pepper Adan R.N. 06/05/18 18:35: 1830 - Pt requesting ice chips, I am dying of thirst encouraged slow intake. HR remains in the 120's. Gtt titrated up to 150mcg/kg/min. Monitor. Original Note: 1644 - Pt orders clarified with Dr. Hauser. Goal for esmolol gtt, HR <110. Currently 120's, titrated up to 100mcg/kg/min. Monitor. 1700 - Pt denies nausea, requesting meal. Encourage pt for slow intake. Offered broth or jello, pt declined request meal provided by kitchen. Pt able to take a few bites, however he then began having emesis. State that it feels like a bubble. Rubbing epigastric area. Pt takes a sip of water and again has emesis. Zofran given. Water cup removed for the time being. Pt request to call . Encourage pt to wait for nausea medication, pt states that he is feeling better. Assist to call , while on phone pt had another episode of emesis. Spoke with on phone, reinforced treatment plan. BP variable during emesis, IVF infusing. Pt feels warm to touch however a-febril per temporal thermometer. Monitor.
[2018-06-05] MEDS: METOPROLOL ER 50 MG TABLET 100 MG PO (18:59)
[2018-06-05] MEDS: LEVALBUTEROL 1.25 MG/0.5 ML NEB INH (20:58)
[2018-06-05] MEDS: PANTOPRAZOLE 40 MG VIAL IV (21:27)
[2018-06-05] MEDS: INSULIN GLARGINE 100 UNIT/ML 3ML PEN 40 UNIT SUBCUT (22:07)
[2018-06-05] MEDS: OXYCODONE IR 5 MG TABLET 10 MG PO (22:50)
[2018-06-06] VITALS (18 sets, daily range): BP systolic 115–147; BP diastolic 48–94; PULSE 65–123; RESP 14–26; TEMP 36.5–37.2; O2SAT 91–97
--- NOTE | 2018-06-06 | DI.RAD.S_ITS ---
PROCEDURE: XR ACUTE ABDOMEN SERIES INDICATIONS: abdominal pain, flank pain, dyspepsia, hypoactive BS TECHNIQUE: One view chest and two views of the abdomen were acquired. COMPARISON: None. FINDINGS: Surgical changes and devices: Sternal wires and hilar clips. Chest: Lungs are clear. Heart size is mildly enlarged. No pleural effusions. No pneumoperitoneum. Abdomen: Bowel gas pattern is normal. No suspicious calcifications. Visualized solid organ contours appear normal. Bones: No suspicious bony lesions. IMPRESSION: Cardiomegaly with increased vascularity. No calcifications overlying the renal shadows. Dictated by: Suha Ruano M.D. on 06/06/2018 at 9:59 Approved by: Suha Ruano M.D. on 06/06/2018 at 10:12
--- NOTE | 2018-06-06 | DI.ECHO.S_ITS ---
[facility]---------+ [facility] +---------+ : : [address] : : : : [id number] : : : : Phone: [phone] Echocardiogram Report + + :Name: KAYLIE MONAE Study Date: 06/07/2018 Height: 74 in : :[facility] Exam Location: IS Weight: 320 lb : : Gender: Male BSA: 2.7 m2 : :: 1940 Age: 77 yrs BP: 144/60 mmHg: :Reason For Study: AFIB : : Performed By: Froylan Jimenez : :Referring: ROHIT SCHWARZ : + + Interpretation Summary The left ventricle is normal in size. The ejection fraction is estimated to be 60-65%. There are no focal wall motion abnormalities. The left atrium is moderately dilated. There is moderate mitral regurgitation. The right ventricular systolic pressure is estimated to be at least 31 mmHg based on an estimated right atrial pressure of 8 mm Hg. There is no prior echocardiogram noted for this patient. No other echocardiographic abnormalities seen. Procedure: A two-dimensional transthoracic echocardiogram with color flow and Doppler was performed. There is no prior echocardiogram noted for this patient. The study quality was technically adequate. The patient was in normal sinus rhythm during the exam. The patient had frequent PACs during the exam. Left Ventricle: The left ventricle is normal in size. There is borderline concentric left ventricular hypertrophy. The ejection fraction is estimated to be 60-65%. There are no focal wall motion abnormalities. Diastolic function could not be accurately assessed due to atrial fibrillation. Right Ventricle: The right ventricle is not well visualized. The right ventricle is grossly normal size. Right ventricular function cannot be assessed due to poor image quality. Atria: The left atrium is moderately dilated. The right atrium is mildly dilated. The interatrial septum is intact with no evidence for an atrial septal defect. Mitral Valve: The mitral valve is normal in structure but abnormal in function. There is moderate mitral regurgitation. Aortic Valve: The aortic valve is trileaflet. The aortic valve opens well. No aortic regurgitation is present. Tricuspid Valve: The tricuspid valve is normal in structure and function. There is mild tricuspid regurgitation. The right ventricular systolic pressure is estimated to be at least 31 mmHg based on an estimated right atrial pressure of 8 mm Hg. Pulmonic Valve: The pulmonic valve is normal in structure and function. There is trace pulmonic regurgitation. Great Vessels: The aortic root is normal size. The ascending aorta is at the upper limits of normal in size. The pulmonary artery is normal size. The IVC is dilated (diameter is greater than 2.1 cm) yet it collapses greater than 50% with a sniff. This suggests a right atrial pressure of 8 mm Hg. Pericardium/ Pleura There is no pericardial effusion. There is no pleural effusion. MMode/2D Measurements & Calculations LVIDd: 5.8 cm Ao root diam: 3.4 cm LVIDs: 3.8 cm Aortic Jxn: 2.7 cm FS: 33.5 % asc Aorta Diam: 3.5 cm EPSS: 0.63 cm IVSd: 0.83 cm LVPWd: 1.0 cm LV ledezma. diameter/BSA (cm/m^2): 2.2 LV sys. diameter/BSA (cm/m^2): 1.4 LA dimension: 5.7 cm RA long axis: 5.7 cm LA A2 area: 27.4 cm2 RA area: 26.0 cm2 LA A4 area: 36.3 cm2 RA vol: 100.5 ml LA length (vol): 5.7 cm RA : 37.9 ml/m2 LA vol: 148.3 ml IVC diam: 3.5 cm LA vol index: 55.9 ml/m2 Doppler Measurements & Calculations Ao V2 max: 162.4 cm/sec LVOT Max Jame: 110.1 cm/sec Ao V2 mean: 111.3 cm/sec LV V1 max P.9 mmHg Ao max P.6 mmHg LV V1 VTI: 23.7 cm Ao mean P.5 mmHg sev ratio: 0.74 Ao V2 VTI: 32.1 cm MV E max jame: 156.3 cm/sec TR max jame: 241.2 cm/sec MV A max jame: 94.0 cm/sec TR max P.4 mmHg MV E/A: 1.7 PA V2 max: 86.7 cm/sec Med Peak E' Jame: 5.8 cm/sec PA V2 mean: 62.3 cm/sec E/E' med: 26.8 PA mean P.7 mmHg Lat Peak E' Jame: 11.9 cm/sec PA pr(Accel): 34.1 mmHg E/E' lat: 13.2 PA Accel Time: 0.11 sec E/e' average: 20.0 MV dec time: 0.14 sec Pulm A Revs Jame: 30.5 cm/sec MV V2 mean: 87.7 cm/sec MV mean P.8 mmHg MV V2 VTI: 27.7 cm Reading Physician:03:40 PM
[2018-06-06] MEDS: ESMOLOL 2.5 GM/250 ML IV.SOLN IV ×6 (00:32→10:40)
[2018-06-06] MEDS: MORPHINE 5 MG/ML INJ 2 MG IV ×4 (00:37→19:32)
[2018-06-06] MEDS: DEXTROSE 5%-0.9% NS 1,000 ML 100 ML IV ×3 (02:24→22:43)
[2018-06-06] MEDS: ONDANSETRON 4 MG/2 ML INJ IV ×4 (04:42→19:33)
[2018-06-06 05:33] LABS: Hematocrit 40.2 % (41-53); Hemoglobin 13.1 g/dL (13.5-17.5); Mean Corpuscular HGB Conc 32.5 % (30-36); Mean Corpuscular Hemoglobin 30.5 PG (26-34); Platelet Count 224 X10^3/uL (150-400); Red Blood Cell Count 4.28 X10^6/uL (4.5-5.9); Red Cell Distribution Width 14.5 % (11.6-14.8); White Blood Cell Count 16.1 X10^3/uL (4.5-11.0)
[2018-06-06 05:38] LABS: BUN Creatinine Ratio 21.8 (6-22); Blood Urea Nitrogen 24 mg/dL (9-20); Calcium 8.6 mg/dL (8.4-10.2); Carbon Dioxide 25 mmol/L (22-32); Chloride 105 mmol/L (98-107); Estimated Glomerular Filt Rate > 60.0 mL/min (>60); Glucose 143 mg/dL (80-110); HEMOLYSIS 30 (0-50); Potassium 4.1 mmol/L (3.4-5.1); Sodium 141 mmol/L (137-145)
[2018-06-06 06:00] LABS: Add Manual Diff / Slide Review YES
[2018-06-06 06:01] LABS: Neutrophils Absolute Manual 10787 /uL (3000-5900); RBC Morphology Normal Morphology; Total Cells Counted 100
--- NOTE | 2018-06-06 06:57 | PC.NURSE ---
Patient is weak, oriented to person, place, and situation, uses call light most of the time. Esmolol gtt continues, started at 150mcg/kg/min, was able to titrated down to 140mcg/min for 1/2, then had to increase up to 160mcg/min by 0700 to keep HR < 110, BP has been stable, see vital trends, denies chest pain, palpitations, or dyspnea. 2mg IV morphine given for generalized pain and new pain in Rt flank. IV Zofran given for mild nausea and small emesis. Voiding small amounts of dark stacie urine frequently, scanned bladder 450ml, informed Dr Hector, order obtained for In/out straight cath.
[2018-06-06] MEDS: LEVALBUTEROL 1.25 MG/0.5 ML NEB INH ×2 (08:03→17:22)
--- NOTE | 2018-06-06 08:40 | CM.DANOTE ---
DCP: Case received, EMR reviewed and met with patient. Introduced self and role. DCP template completed and information currently available. Patient is a 77 year old male who admitted yesterday afternoon to the care of the hospitalist team. PCP: Dr. Gross. Payer: Medicare/[employer]. Patient came to hospital via family vehicle with symptoms of nausea and vomiting. Patient carries diagnosis of urinary tract infection/a-fib. Met with patient in his room. Pleasant, was working with respiratory therapy. Lives in [place] with his , who is very supportive. Patient stated that he is independent at home, and drives. P: DCP to follow closely, may be able to go home when stable depending on progress in hospital. Maggie Rizo RN/Aerospace Stress Engineer
[2018-06-06] MEDS: ENOXAPARIN 40 MG/0.4 ML SYRINGE SUBCUT (09:35)
[2018-06-06] MEDS: INSULIN GLARGINE 100 UNIT/ML 3ML PEN 40 UNIT SUBCUT ×2 (09:35→21:36)
[2018-06-06] MEDS: NYSTATIN POWDER 30 GM 1 APPLIC TOP ×2 (09:41→21:36)
[2018-06-06] MEDS: PANTOPRAZOLE 40 MG VIAL IV (09:41)
--- NOTE | 2018-06-06 11:44 | PM.PN.1 ---
Subjective Date Patient Seen: 06/06/18 Interval history: Chart reviewed, Patient seen and examined. He continues to have nausea. He is unable to keep down any of his medications. He remains in atrial fibrillation with Rapid Ventricular response. Esmolol is limited in supply and does not appear to control his rate. Patient has a history of gastroparesis. I suspect this may be the etiology of the nausea and emesis. Exam Vital Signs (past 8 hours): - 06/06/18 04:00 06/06/18 06:00 06/06/18 07:59 Temperature 98.2 F 98.5 F Pulse Rate 122 H 114 H 107 H Respiratory Rate 14 26 H 17 Blood Pressure 115/52 L 140/81 122/71 Pulse Oximetry 95 94 93 06/06/18 08:06 06/06/18 09:40 Temperature Pulse Rate Respiratory Rate Blood Pressure Pulse Oximetry 97 93 Fraction of Inspired Oxygen 0.21 Oxygen Delivery Method Room Air Oxygen Flow Rate 0 Narrative Exam Narrative: Ill appearing male Lungs: Decreased breath sounds with scattered rhonchi bilaterally CV: Tachycardic irregularly irregular Nl Sl S2 Abd; obest/ soft/ non tender/ hypoactive bowel tones/ No HSM Ext; no edema Objective Labs Result Diagrams: 06/06/18 04:44 06/06/18 04:44 Labs: Laboratory Results - last 24 hr 06/05/18 06/05/18 06/06/18 15:00 17:00 04:44 WBC 16.1 H RBC 4.28 L Hgb 13.1 L Hct 40.2 L MCV 94.0 MCH 30.5 MCHC 32.5 RDW 14.5 Plt Count 224 Neut % (Auto) Not Reportable Lymph % (Auto) Not Reportable [place] % (Auto) Not Reportable Eos % (Auto) Not Reportable Baso % (Auto) Not Reportable Total Counted 100 Seg Neutrophils % 67.0 Lymphocytes % (Manual) 17.0 L Monocytes % (Manual) 13.0 H Eosinophils % (Manual) 3.0 Neutrophils # (Manual) 36322 H RBC Morphology Normal morphology Sodium Potassium Chloride Carbon Dioxide BUN Creatinine Estimated GFR BUN/Creatinine Ratio Glucose Calcium Troponin I 0.028 Nasal Screen MRSA (PCR) Negative for mrsa Influenza A & B (PCR) Negative 06/06/18 04:44 WBC RBC Hgb Hct MCV MCH MCHC RDW Plt Count Neut % (Auto) Lymph % (Auto) [place] % (Auto) Eos % (Auto) Baso % (Auto) Total Counted Seg Neutrophils % Lymphocytes % (Manual) Monocytes % (Manual) Eosinophils % (Manual) Neutrophils # (Manual) RBC Morphology Sodium 141 Potassium 4.1 Chloride 105 Carbon Dioxide 25 BUN 24 H Creatinine 1.10 Estimated GFR > 60.0 BUN/Creatinine Ratio 21.8 Glucose 143 H Calcium 8.6 Troponin I Nasal Screen MRSA (PCR) Influenza A & B (PCR) Assessment & Plan (1) Atrial fibrillation with RVR: Problem details: Esmolol in limited supply. Rate control is suboptimal. Will load with digoxin and start Cardizem drip. Await Echo. If no improvement will start amiodarone drip Current visit: Yes Status: Acute (2) Intractable vomiting: Problem details: Still nauseated. will continue IV hydration, add reglan and continue zofran Qualifiers: Nausea presence: with nausea Vomiting type: unspecified Qualified Code(s): R11.2 - Nausea with vomiting, unspecified Current visit: Yes Status: Acute (3) Acute UTI: Problem details: Continue IV Rocephin 1 g Q 24 hr, pending urine culture results Current visit: Yes Status: Acute (4) Myasthenia gravis: Problem details: Continue routine pyridostigmine. He is unable to take this now given nausea Current visit: Yes Status: Acute (5) Obstructive sleep apnea of adult: Problem details: Continue cpap Current visit: No Status: Chronic (6) Gastroparesis due to DM: Problem details: Reglan started, hopefully this will improve. IF persists, consider EGD to r/o ulcer or other etiology Current visit: Yes Status: Acute Quality VTE Deep Vein Thrombosis/Pulmonary Embolism Present on Admission: No
--- NOTE | 2018-06-06 11:50 | PM.PN.1 ---
Subjective Date Patient Seen: 06/07/18 Interval history: Patient continues to be nauseated. He is unable to take anything by mouth. As soon as he swallows he develops nausea and emesis. He denies any pain, specifically no abdominal pain. He is not have hemetemesis. Patient had rapid atrial fibrillation yesterday. His symptoms improved with IV diltiazem and IV digoxin. He is still unable to take any pills by mouth Exam Vital Signs (past 8 hours): - 06/06/18 04:00 06/06/18 06:00 06/06/18 07:59 Temperature 98.2 F 98.5 F Pulse Rate 122 H 114 H 107 H Respiratory Rate 14 26 H 17 Blood Pressure 115/52 L 140/81 122/71 Pulse Oximetry 95 94 93 06/06/18 08:06 06/06/18 09:40 Temperature Pulse Rate Respiratory Rate Blood Pressure Pulse Oximetry 97 93 Fraction of Inspired Oxygen 0.21 Oxygen Delivery Method Room Air Oxygen Flow Rate 0 Narrative Exam Narrative: Pleasant gentleman on CPAP Lungs: Clear to auscultation CV: irregularly, irregular, nl Sl S2 /6 DALI Abd: obese/ soft/ non tender/ non distended hypoactive bowel tones, no appreciable HSM, no rebound tenderness, no palpable masses EXT: no edema Objective Labs Result Diagrams: 06/07/18 04:42 06/07/18 04:42 Labs: Laboratory Results - last 24 hr 06/05/18 06/05/18 06/06/18 15:00 17:00 04:44 WBC 16.1 H RBC 4.28 L Hgb 13.1 L Hct 40.2 L MCV 94.0 MCH 30.5 MCHC 32.5 RDW 14.5 Plt Count 224 Neut % (Auto) Not Reportable Lymph % (Auto) Not Reportable [place] % (Auto) Not Reportable Eos % (Auto) Not Reportable Baso % (Auto) Not Reportable Total Counted 100 Seg Neutrophils % 67.0 Lymphocytes % (Manual) 17.0 L Monocytes % (Manual) 13.0 H Eosinophils % (Manual) 3.0 Neutrophils # (Manual) 89993 H RBC Morphology Normal morphology Sodium Potassium Chloride Carbon Dioxide BUN Creatinine Estimated GFR BUN/Creatinine Ratio Glucose Calcium Troponin I 0.028 Nasal Screen MRSA (PCR) Negative for mrsa Influenza A & B (PCR) Negative 11/19/18 04:44 WBC RBC Hgb Hct MCV MCH MCHC RDW Plt Count Neut % (Auto) Lymph % (Auto) [place] % (Auto) Eos % (Auto) Baso % (Auto) Total Counted Seg Neutrophils % Lymphocytes % (Manual) Monocytes % (Manual) Eosinophils % (Manual) Neutrophils # (Manual) RBC Morphology Sodium 141 Potassium 4.1 Chloride 105 Carbon Dioxide 25 BUN 24 H Creatinine 1.10 Estimated GFR > 60.0 BUN/Creatinine Ratio 21.8 Glucose 143 H Calcium 8.6 Troponin I Nasal Screen MRSA (PCR) Influenza A & B (PCR) Assessment & Plan (1) Gastroparesis due to DM: Problem details: Reglan started, hopefully this will improve. IF persists, consider EGD to r/o ulcer or other etiology Still symptomatic, given elevated LFT's will obtain abdominal ultrasound. IF negative consider EGD Current visit: Yes Status: Acute (2) Atrial fibrillation with RVR: Problem details: Esmolol in limited supply. Rate control is suboptimal. Will load with digoxin and start Cardizem drip. Await Echo. If no improvement will start amiodarone drip Heart rate well controlled with Cardizem and digoxin. Will continue same for now Current visit: Yes Status: Acute (3) Intractable vomiting: Problem details: Still nauseated. will continue IV hydration, add reglan and continue Zofran Not sure of the etiology, check abdominal ultrasound, consider EGD if symptoms persists Qualifiers: Nausea presence: with nausea Vomiting type: unspecified Qualified Code(s): R11.2 - Nausea with vomiting, unspecified Current visit: Yes Status: Acute (4) Acute UTI: Problem details: Continue IV Rocephin 1 g Q 24 hr, pending urine culture results Urine growing alpha hemolytic strep. Current visit: Yes Status: Acute (5) Myasthenia gravis: Problem details: Continue routine pyridostigmine. He is unable to take this now given nausea Current visit: Yes Status: Acute (6) Obstructive sleep apnea of adult: Problem details: Continue cpap Current visit: No Status: Chronic Quality VTE Deep Vein Thrombosis/Pulmonary Embolism Present on Admission: No
[2018-06-06] MEDS: FLUTICASONE 120 SPRAY/16 GM SPRAY.SUSP NASAL ×2 (12:01→21:36)
[2018-06-06] MEDS: DIGOXIN 500 MCG/2 ML AMPUL 250 MCG IV (12:03)
[2018-06-06] MEDS: dilTIAZem 125 MG in DEXTROSE 5 % IN WATER 100 ML IV (12:05)
[2018-06-06] MEDS: INSULIN ASPART 100 UNIT/ML INSULN PEN SUBCUT (12:08)
[2018-06-06] MEDS: METOCLOPRAMIDE 10 MG/2 ML INJ IV ×2 (12:09→18:36)
--- NOTE | 2018-06-06 12:51 | PC.NURSE ---
Dr. Bustamante in to see pt. 2 Esmolol bags left in pharmacy. weaned Esmolol gtt off with no effect on HR 120's. Cardizem gtt started. HR remains 120's afib. pt denies cp or SOB. reports increased low back discomfort. Morphine 2mg/IV given. Digoxin IV .25mg given.
[2018-06-06] MEDS: CEFTRIAXONE 1 GM/50 ML FROZ.PIGGY IV (14:31)
[2018-06-06] MEDS: LIDOCAINE PATCH 1 EACH ADH..PATCH TOP (18:36)
[2018-06-06] MEDS: METOPROLOL TARTRATE 5 MG/5 ML INJ IV (20:39)
[2018-06-06] MEDS: dilTIAZem 125 MG in DEXTROSE 5 % IN WATER 100 ML 10 ML IV (21:27)
--- NOTE | 2018-06-06 22:59 | PC.NURSE ---
jewell note pt has nausea with only a few sips of water. Pt also frequently coughs out large amounts of thick saliva. Pt c/o back pain, not relieved by lidocaine patch or 2 mg morphine. Pt felt bladder was distended, only able to void a small amount. Bladder scan showed 450-510 ml. Straight cath done for 450 ml stacie urine.
[2018-06-07] VITALS (25 sets, daily range): BP systolic 112–162; BP diastolic 52–103; PULSE 64–132; RESP 13–26; TEMP 36.5–37.2; O2SAT 92–99
--- NOTE | 2018-06-07 | DI.US.S_ITS ---
PROCEDURE: US ABDOMEN COMPLETE INDICATIONS: nausea TECHNIQUE: Real-time scanning was performed of the abdominal and retroperitoneal organs, with image documentation. COMPARISON: [facility], CR, XR ACUTE ABDOMEN SERIES, 06/06/2018, 8:58. FINDINGS: Liver: The liver demonstrates prominent size. The liver demonstrates generalized increased echogenicity. This decreases ultrasound sensitivity for detection of hepatic masses. Gallbladder: Several small nonobstructing stones can be seen. The gallbladder wall is not thickened, measuring 3 mm or less. No specific pericholecystic fluid is seen. The sonographic [place] sign is negative. Biliary ducts: Intrahepatic bile ducts are non-dilated. Extrahepatic bile duct caliber measures 6 mm. Normal is 6-7 mm or less in diameter, or 10 mm or less post-cholecystectomy. Pancreas: Not seen. Spleen: Spleen is normal in size and homogeneous in echotexture. Kidneys: Kidneys are normal in size and echotexture. Right kidney measures 12.8 cm long; left kidney measures 13.5 cm long. No hydronephrosis or nephrolithiasis. No solid masses. The renal cortex measures within normal limits for thickness. Aorta: Not seen. Ili[place]: Not seen. IVC: Not seen. Miscellaneous: No free abdominal fluid. This study is limited by body habitus. IMPRESSION: Tiny, nonobstructing gallstones are seen. No additional sonographic signs of cholecystitis can be seen. No biliary dilatation. Prominent, fatty liver. Dictated by: Sinan De Luna M.D. on 06/07/2018 at 15:59 Approved by: Sinan De Luna M.D. on 06/07/2018 at 16:01
[2018-06-07] MEDS: MORPHINE 4 MG/ML INJ IV ×4 (01:10→23:58)
[2018-06-07] MEDS: METOPROLOL TARTRATE 5 MG/5 ML INJ IV ×4 (02:24→20:18)
[2018-06-07] MEDS: ONDANSETRON 4 MG/2 ML INJ IV (03:13)
[2018-06-07 05:37] LABS: Add Manual Diff / Slide Review NO; Basophils Percent Auto 0.5 % (0-2); Eosinophils Percent Auto 0.7 % (2-4); Hematocrit 35.9 % (41-53); Hemoglobin 11.7 g/dL (13.5-17.5); Lymphocytes Percent Auto 14.4 % (25-40); Mean Corpuscular HGB Conc 32.7 % (30-36); Mean Corpuscular Hemoglobin 30.5 PG (26-34); Mean Corpuscular Volume 93.4 fL (80-100); Monocytes Percent Auto 9.3 % (3-14); Neutrophils Absolute Auto 8700 /uL (3000-5900); Neutrophils Percent Auto 75.1 % (50-75); Platelet Count 222 X10^3/uL (150-400); Red Blood Cell Count 3.85 X10^6/uL (4.5-5.9); Red Cell Distribution Width 14.1 % (11.6-14.8); White Blood Cell Count 11.5 X10^3/uL (4.5-11.0)
[2018-06-07 05:41] LABS: BUN Creatinine Ratio 17.8 (6-22); Blood Urea Nitrogen 16 mg/dL (9-20); Calcium 8.4 mg/dL (8.4-10.2); Carbon Dioxide 24 mmol/L (22-32); Chloride 108 mmol/L (98-107); Estimated Glomerular Filt Rate > 60.0 mL/min (>60); Glucose 121 mg/dL (80-110); HEMOLYSIS < 15 (0-50); Potassium 3.5 mmol/L (3.4-5.1); Sodium 143 mmol/L (137-145)
[2018-06-07] MEDS: METOCLOPRAMIDE 10 MG/2 ML INJ IV ×5 (06:01→23:57)
[2018-06-07] MEDS: MORPHINE 5 MG/ML INJ 4 MG IV (06:37)
--- NOTE | 2018-06-07 06:53 | PC.NURSE ---
Patient has been awake most of the night, drowsy, oriented, but restless, using call light frequently for assist to chair, bed, stand to void, request pain medication, or ice chips. 4mg IV morphine given per prn orders, IV Zofran prn, IV Reglan Q6h as ordered, still has small amounts of frothy emesis after taking ice chips. Diltiazem gtt titrated 3-5mg/hr, HR 80-90s at rest, but still goes up to 120s briefly during activity, IV metoprolol scheduled Q6h. BP stable, see vital trends.
[2018-06-07] MEDS: DEXTROSE 5%-0.9% NS 1,000 ML 100 ML IV ×2 (08:54→19:06)
[2018-06-07] MEDS: PANTOPRAZOLE 40 MG VIAL IV (08:55)
[2018-06-07] MEDS: ENOXAPARIN 40 MG/0.4 ML SYRINGE SUBCUT (08:55)
[2018-06-07] MEDS: LIDOCAINE PATCH 1 EACH ADH..PATCH TOP (09:01)
[2018-06-07] MEDS: NYSTATIN POWDER 30 GM 1 APPLIC TOP ×2 (09:01→23:13)
[2018-06-07] MEDS: FLUTICASONE 120 SPRAY/16 GM SPRAY.SUSP NASAL ×2 (09:02→23:13)
[2018-06-07] MEDS: INSULIN GLARGINE 100 UNIT/ML 3ML PEN 40 UNIT SUBCUT ×2 (09:02→23:12)
[2018-06-07] MEDS: CEFTRIAXONE 1 GM/50 ML FROZ.PIGGY IV (12:13)
[2018-06-07] MEDS: dilTIAZem 125 MG in DEXTROSE 5 % IN WATER 100 ML 10 ML IV (19:06)
--- NOTE | 2018-06-07 19:58 | P.CONS_ITS ---
History of Present Illness Date Patient Seen: 06/07/18 Time Patient Seen: 19:54 Chief complaint: Vomitting since wednesday Reason for consult: Dysphagia and regurgitation Requesting provider: Valerie Bustamante Narrative: 77-year-old male with significant comorbid medical conditions was in his baseline state of health at home with his when he experienced acute onset of nausea and regurgitation immediately following his evening meal 4 days ago now. He does not recall exactly what he was eating at that time although he believes he may have had a pork chop is the main course. Denies any dysphagia or odynophagia in the past. No particular similar symptoms at the time of his evening meal. However, he states to me this evening that shortly within 1 or 2 min after finishing the last bite of his dinner he immediately began to regurgitate undigested food. Since that time he has been unable to tolerate even sips of water. He feels he is tolerating his own secretions however. Nevertheless he does have a mildly productive cough of clear sputum. He has never had any real similar symptoms in the past. No history of foreign body impaction. He has had no prior EGD by his recollection. Denies any chest pain or shortness of breath currently. No abdominal pain. He has not had a bowel movement in 4 days however. He has no known history of gastroparesis although he has been a diabetic for number of years. Denies any history of neck surgery or radiation therapy. No recent neck masses on self examination. No voice changes. No fever or chills. After 36 hr of inability to tolerate even liquids including water he was brought to the emergency department by his . Patient had not been able to take any of his usual medications for his multiple comorbid medical conditions during that time as well. At the time of admission he was found to be in atrial fibrillation with rapid ventricular rate assess the taping admission to the ICU along with intravenous medications to return him to sinus rhythm. He remains on Cardizem drip currently. Over the last several days since admission he has been unable to tolerate any type of oral intake other than a few ice chips at a time which allows to melt then swallow. He has failed every trial of water, clear liquids, or any other type of foods. [facility] Medical History Obstructive sleep apnea of adult (Chronic) Primary insomnia (Chronic) Snoring (Chronic) Depression (Acute) Hiatal hernia (Acute) Hypercholesteremia (Acute) Hypertension (Acute) Benign prostatic hyperplasia (Chronic) H/O ischemic heart disease (Chronic) Hearing difficulty of right ear (Chronic) History of lower GI bleeding (Chronic) Hx of upper gastrointestinal hemorrhage (Chronic) Morbid obesity with BMI of 40.0-44.9, adult (Chronic) Myasthenia gravis (Chronic) Spondylolysis, cervical region (Chronic) Spondylosis of lumbar spine (Chronic) Type 2 diabetes mellitus (Chronic) Hx of transient ischemic attack (TIA) (Inactive) Surgical History History of lumbosacral spine surgery (Acute) Hx of cataract removal with insertion of prosthetic lens (Chronic) S/P CABG x 3 (Chronic) Family History: Reviewed 06/05/18 by Morteza Beaulieu MD Social History marital status: details: 50 yrs household members: spouse lives independently: Yes Smoking Status: Former smoker alcohol intake: former Meds Home Medications Medication Instructions Recorded Confirmed Type ferrous sulfate 325 mg PO QDAY #0 08/16/12 06/05/18 History finasteride 5 mg PO QDAY #0 08/16/12 06/05/18 History lisinopril 10 mg PO QDAY #0 08/16/12 06/05/18 History multivitamin 1 tab PO DAILY #0 08/16/12 06/05/18 History pioglitazone [Actos] 45 mg PO QDAY #0 08/16/12 06/05/18 History sertraline [Zoloft] 50 mg PO QDAY #0 08/16/12 06/05/18 History simvastatin [Zocor] 40 mg PO HS #0 08/16/12 06/05/18 History triamterene-hydrochlorothiazid 1 tab PO DAILY #0 08/16/12 06/05/18 History vitamin B complex 1 cap PO DAILY #0 08/16/12 06/06/18 History vitamin E 400 units PO QDAY #0 08/16/12 06/05/18 History doxazosin 12 mg PO HS #0 12/23/16 06/05/18 History fluticasone-salmeterol [Advair 1 puff INH BID #0 12/23/16 06/06/18 History Diskus] insulin aspart U-100 [Novolog 0 unit SQ QIDACHS #0 12/23/16 06/05/18 History U-100 Insulin aspart] lidocaine [Lidoderm] 1 patch TOPICAL Q12H #0 12/23/16 06/05/18 History metoprolol succinate 50 mg PO BID #0 12/23/16 06/05/18 History omeprazole 20 mg PO BID #0 12/23/16 06/05/18 History oxycodone 10 mg PO QIDP PRN #30 tab 12/23/16 06/05/18 Rx oxycodone [OxyContin] 10 mg PO BID #60 tab 12/23/16 06/05/18 Rx insulin glargine [Lantus Solostar 40 units BID #0 09/07/17 06/05/18 History U-100 Insulin] pyridostigmine bromide [Mestinon] 60 mg PO TID #275 tab 09/07/17 06/05/18 Rx fluticasone 50 mcg/actuation nasal 2 spray NASAL DAILY #47.4 gram 01/13/1806/06 Rx spray,suspension clopidogrel 75 mg tablet 75 mg PO DAILY 03/31/18 06/05/18 History loratadine 10 mg tablet 10 mg PO DAILY 03/31/18 06/05/18 History Allergies Allergy/AdvReac Type Severity Reaction Status Date / Time ciprofloxacin [From CIPRO] Allergy Severe CAN'T TAKE Verified 06/05/18 08:07 BECAUSE OF MYASTHENIA GRAVIS ibuprofen [IBUPROFEN] Allergy Intermediate Verified 06/05/18 08:07 NSAIDS (Non-Steroidal Allergy Mild Verified 06/05/18 08:07 Anti-Inflamma [NSAIDS (NON-STEROIDAL ANTI-INFLAMMA] Review of Systems Review of Systems All systems reviewed & are unremarkable except as noted in HPI and below Exam Vital Signs (past 8 hours): - 06/07/18 12:00 06/07/18 14:00 06/07/18 16:00 Temperature 97.7 F Pulse Rate 96 H 98 H 77 Respiratory Rate 18 14 13 Blood Pressure 139/53 L 137/72 143/65 H Pulse Oximetry 92 96 98 Fraction of Inspired Oxygen 0.21 Oxygen Delivery Method Room Air Oxygen Flow Rate 0 Narrative Exam Narrative: Elderly obese male sitting comfortably in his ICU bed watching television at the time of my visit. He is alert oriented x3. Sclera nonicteric Neck is supple without lymphadenopathy or masses. Trachea is midline. No thyromegaly. Phonation appears normal. He is handling his own secretions at this point however. Chest clear to auscultation bilaterally. He is currently in a regular rhythm at 90 beats per minute on Cardizem drip. Abdomen is obese but soft and nondistended. Nontender. No obvious masses although examination is limited by his body habitus. Extremities show no clubbing or cyanosis Objective Labs Result Diagrams: 06/07/18 04:42 06/07/18 04:42 Labs: Laboratory Results - last 24 hr 06/07/18 06/07/18 04:42 04:42 WBC 11.5 H RBC 3.85 L Hgb 11.7 L Hct 35.9 L MCV 93.4 MCH 30.5 MCHC 32.7 RDW 14.1 Plt Count 222 Neut % (Auto) 75.1 H Lymph % (Auto) 14.4 L [place] % (Auto) 9.3 Eos % (Auto) 0.7 L Baso % (Auto) 0.5 Neut # (Auto) 8700 H Sodium 143 Potassium 3.5 Chloride 108 H Carbon Dioxide 24 BUN 16 Creatinine 0.90 Estimated GFR > 60.0 BUN/Creatinine Ratio 17.8 Glucose 121 H Calcium 8.4 I have personally reviewed his chest x-ray done this admission which shows cardiomegaly but no obvious pulmonary infiltrates. No obvious large hiatal hernia with intrathoracic stomach. He is status post median sternotomy. Echocardiogram shows left ventricular ejection fraction of approximately 60%. Abdominal ultrasound has been performed which shows probable hepatic steatosis and few tiny incidental gallstones. However, there is no pericholecystic fluid , gallbladder wall thickening, or biliary dilatation. Assessment & Plan Plan: Assessment/Plan Narrative: 77-year-old male with dysphagia of acute onset 4 days ago that is unrelenting. During my examination I sat him upright and allowed him to take 2 sips of water from his cup at which point he promptly became mildly nauseated, felt a subjective gurgling sensation in the midthoracic region and begin to regurgitate the water. Given the acute onset of his current symptoms, unrelenting nature of such, and his obvious inability to tolerate even sips of water I believe he has some sort of potential esophageal foreign body impaction that may possibly have been related to his evening meal last week prior to his admission. Small possibility of esophageal stricture. Possible neoplasm although I find this less likely. Given the severity of his symptoms along with the above history I do not believe that an upper gastrointestinal series will provide us with any significant further information. I doubt significant dysmotility or gastroparesis as his symptoms and history are not consistent with such even though he may have some element of this complicating his other multiple medical conditions. Because he has been essentially NPO throughout at least today and he is otherwise hemodynamically stable at the moment I believe we have a window of opportunity to perform EGD with potential foreign body removal and/or dilatation. Small possibility of biopsy. I discussed the technical details of the procedure with the patient at length including the need for general anesthesia. Clearly he needs to have his airway protected, and he has myasthenia gravis for which he has not taken his medications for number of days. I advised him that there may be a possibility he will not breathe on his own after the procedure need to be intubated. Nevertheless I believe this is a small risk as he currently is in his baseline functional status other than the dysphagia per his report. He is also moving all his extremities symmetrically. We discussed the possibility of uncontrolled ventricular rhythms or other malignant rhythms as a result of anesthesia. Inability to remove any obvious foreign body or adequately dilate the stricture were also mentioned as possibilities. Other risks such as anesthesia, bleeding , pain, esophageal perforation, gastric perforation, duodenal perforation, need for major thoracic surgery, need for major abdominal surgery, and even were discussed. If I find a foreign body impaction but am unable to remove it then he would require transfer to a higher level facility with more advanced gastroenterology service is available. He was agreeable to such if indicated. I also called his , Gloria, and discussed the case via telephone with her. All questions were answered to her satisfaction. All questions of the patient were answered to his satisfaction, and the patient voiced understanding. Consent was placed on the chart. We will proceed urgently this evening as above.
--- NOTE | 2018-06-07 20:11 | PC.NURSE ---
Addendum entered by Domitila Mancia R.N. 06/07/18 23:20: received pt post EGD. Pt having lots of coughing, spitting out thick white mucous. Pt tolerated a few sips of warm water and some ice chips. Pt states he is feeling better already. HR still up to 130 when voiding. Original Note: jewell note pt not tolerating drinking water; spits it back out. Pt c/o dry mouth and throat, asking for water. Told pt he could have ice chips only at this time. Pt able to eat ice chips a few at a time. Pt c/o back pain, worse than his usual amount of pain. Spoke to Dr. Bustamante and new medication orders received. Diltiazem gtt initially at 5 mg/hr. HR 80s-90 at rest while sitting at edge of bed, but up to 120s-132 while trying to void. B?P 171/74. Diltiazem gtt increased to 10 mg/hr. Dr. Pedersen in to see pt. Pt being prepped for endoscopy.
--- NOTE | 2018-06-07 20:11 | PM.PREOP ---
Pre-operative Note Interval Note Pre-op Check: Yes History & Physical Reviewed by Physician, Yes Exam Performed and Yes History & Physical exam performed today by Physician Changes: No H&P completed within 30 days and has changed as indicated here:: Patient seen and examined this evening. My consultation note which services a history physical examination for this procedure is on the chart. No changes obviously in the last 20 min. We will proceed with EGD as planned urgently.
--- NOTE | 2018-06-07 21:06 | PM.OP.1 ---
Operative Date/Time/Diagnoses Date of procedure: 06/07/18 Time of procedure: 21:06 Post-op diagnosis: same Procedure & Clinicians Procedure: 1. Esophagogastroduodenoscopy 2. Removal of impacted esophageal food bolus in distal esophagus Same procedure as scheduled: Yes Indications: 77-year-old male with multiple comorbid medical conditions admitted to the ICU several days ago with dysphagia and regurgitation complicated by rapid ventricular rate atrial fibrillation. His heart rate is under control but he continues to have difficulties with dysphagia. He was therefore recommended to undergo urgent EGD for suspected foreign body impaction. Surgeon: Neel Pedersen Click Yes if Unassisted: Yes Anesthesia Type: General Operative Notes Findings: 1. Mildly dilated esophagus without evidence of obvious stricture 2. Small hiatal hernia 3. Erosive esophagitis distally 4. No evidence of neoplasm in the upper gastrointestinal tract 5. Findings potentially consistent with esophageal candidiasis Closure Type: not applicable Specimen(s): none sent Implants & Drains: None Estimated Blood Loss (mL): 5 Blood products transfused: none Procedure in detail: After obtaining informed consent the patient was brought to the operating room and left supine on the hospital bed. After satisfactory induction of anesthesia bite block was inserted. SCOAP time out was performed per standard protocol. Gastroscope was inserted through the bite block over the tongue to the oropharynx. Upper esophageal sphincter was identified and easily intubated. Under direct visualization of the esophageal lumen the scope was advanced distally. Obvious food bolus impaction was encountered in the distal esophagus. Findings are otherwise as above. Food bolus was gently manipulated with copious forceful irrigation and gentle manipulation with the endoscope. Food bolus was dislodged and easily passed into the stomach. Esophagus was cleared of all residual food material and fluid. Scope was advanced into the stomach which was insufflated with air. Retroflexed view revealed normal cardia and fundus. In scissor was also normal. No evidence of gastric ulcers or neoplasms. No significant gastritis. No blood. Pylorus was widely patent and noted to be grossly normal. Pylorus was easily intubated and scope advanced to the 2nd portion the duodenum which was normal in appearance. No duodenal ulcers or strictures. Scope was withdrawn back into the stomach which was suctioned of air and fluid after verifying that the impacted food material was indeed in the gastric lumen. Scope was withdrawn back to the gastroesophageal junction which appeared otherwise normal without ulceration or stricture. The esophagus was meticulously and circumferentially examined as the scope was slowly withdrawn. Again, findings are as above. Scope was removed and the procedure terminated. Bite block was removed. Anesthesia was reversed and the patient extubated in the operating room. He was taken recovery in stable condition. Complications: none Condition: stable Disposition: PACU Plan for aftercare: 1. Returned ICU for ongoing cardiac management 2. Allow diet tomorrow if stable
--- NOTE | 2018-06-07 21:15 | SUR.PHASEI ---
Report called to Ludmila in the ICU. PT in stable condition, VSS. Pt laying in bed with eyes closed, easily responds to RN when spoken to.
--- NOTE | 2018-06-07 21:29 | SUR.PHASEI ---
pt transferred to icu in stable condition. bedside report given to SHARON Keys. Transferred care of pt to her at that time.
[2018-06-08] VITALS (16 sets, daily range): BP systolic 111–158; BP diastolic 50–82; PULSE 56–122; RESP 11–24; TEMP 36.4–37.4; O2SAT 93–97
[2018-06-08] MEDS: METOPROLOL TARTRATE 5 MG/5 ML INJ IV (02:26)
[2018-06-08] MEDS: DEXTROSE 5%-0.9% NS 1,000 ML 100 ML IV ×3 (03:11→23:04)
[2018-06-08] MEDS: MORPHINE 4 MG/ML INJ IV (04:18)
[2018-06-08] MEDS: FLUTICASONE 120 SPRAY/16 GM SPRAY.SUSP NASAL ×2 (06:21→20:32)
[2018-06-08] MEDS: METOCLOPRAMIDE 10 MG/2 ML INJ IV (06:21)
--- NOTE | 2018-06-08 06:44 | PC.NURSE ---
Patient was able to doze intermittently after receiving IV morphine for chronic back pain, still unable to get totally comfortable from this bed. Diltiazem gtt titrated from 10mg to 2mg/hr, HR 50s-80s at rest, but still becomes tachycardic up to 130s while standing at bedside. IV metoprolol continues Q6h as ordered, BP stable, see vital trends and rhythm strips. Taking ice chips and sips water without n/v, but does cough occasionally. Clear liquid diet ordered for breakfast per Dr Pedersen.
--- NOTE | 2018-06-08 08:32 | PM.PN.1 ---
Subjective Date Patient Seen: 06/08/18 Time Patient Seen: 08:32 Interval history: Follow up on nausea/vomitng, dysphagia, and AFib with RVR. Patient seen at bedside. He underwent EGD yesterday which revealed impacted esophageal food bolus that was removed. Also found to have small hiatal hernia, erosive esophagitis and possible esophageal candidiasis. Patient is feeling much better today. His nausea has resolved. He would like to eat today. No overnight events. Afib is well controlled with IV medications that will now advance to PO. Exam Vital Signs (past 8 hours): - 06/08/18 02:33 06/08/18 04:00 06/08/18 08:00 Temperature 99.4 F 98.7 F Pulse Rate 67 85 77 Respiratory Rate 14 18 20 Blood Pressure 130/50 L 136/50 L 111/52 L Pulse Oximetry 96 96 Fraction of Inspired Oxygen 0.21 Oxygen Delivery Method Room Air Oxygen Flow Rate 0 Narrative Exam Narrative: Gen: NAD, AAOx3 HEENT: CPAP mask in place CV: Irregularly irregular rhythm Resp: CTA BL, no wheezing GI: +BS, soft, nontender. No organomegally. Obese abd Ext: No edema. Skin: No lesions MSK: moves all ext BL Objective Labs Result Diagrams: 06/07/18 04:42 06/07/18 04:42 Assessment & Plan Plan: Assessment/Plan Narrative: 1. Dysphagia - Likely due to impacted food bolus - Now removed by EGD. EGD also revealed erosive esophagitis - Will advance PO today to see if tolerates - DC Reglan - Start Protonix 2. AFib - RVR resolved - ECHO showed EF 60-65%, unable to assess diastolic function, no pericardial effusions - Continue Metoprlol 100mg PO BID - Titrate Diltiazem drip off 3. Intractable vomiting - Likely related to food bolus, now resolved - zofran PRN 4. UTI - Leukocytosis improving - Continue Rocephin IV Daily until Sensitivities are back - Urine cultures: Streptococcus alpha hemolyticus 5. Myasthenia Gravis - Not in exacerbation - Continue home pyridostigmine 6. JASPER - Continue CPAP 7. DM Type II - Continue Lantus 40U BID and Sliding scale - Frequent accuchecks, hypoglycemia protocol 8. CAD - Continue Plavix, Statin, and Metoprolol 20 min spent evaluating and managing patient Quality VTE Deep Vein Thrombosis/Pulmonary Embolism Present on Admission: No
[2018-06-08] MEDS: NYSTATIN POWDER 30 GM 1 APPLIC TOP ×2 (09:18→20:36)
[2018-06-08] MEDS: LIDOCAINE PATCH 1 EACH ADH..PATCH TOP (09:18)
[2018-06-08] MEDS: METOPROLOL ER 50 MG TABLET 100 MG PO ×2 (09:19→20:33)
[2018-06-08] MEDS: INSULIN GLARGINE 100 UNIT/ML 3ML PEN 40 UNIT SUBCUT ×2 (09:19→20:37)
[2018-06-08] MEDS: CLOPIDOGREL 75 MG TABLET PO (09:20)
[2018-06-08] MEDS: PYRIDOSTIGMINE 60 MG TABLET PO ×3 (09:20→20:31)
[2018-06-08] MEDS: ENOXAPARIN 40 MG/0.4 ML SYRINGE SUBCUT (09:20)
[2018-06-08] MEDS: FINASTERIDE 5 MG TABLET PO (09:21)
[2018-06-08] MEDS: LISINOPRIL 10 MG TABLET PO (09:21)
[2018-06-08] MEDS: SERTRALINE 50 MG TABLET PO (09:22)
--- NOTE | 2018-06-08 10:26 | CM.DPC ---
DCP: continued: Case received, d/c back to [facility] is noted. Pt confirms she lives there with her in the independent setting. Confirmed with PT, pt and SHARON Singh that no walker will be needed at d/c. Pt has been up getting ready independently in her room today. CS is called and will have their van here/ER entrance at 1115 ([facility]/healthcare facility administrator was anticipating this today). All are updated.
--- NOTE | 2018-06-08 11:09 | CM.DPC ---
Referral faxed to [facility]
--- NOTE | 2018-06-08 11:11 | CM.DPC ---
DCP: continued: case received, EMR reviewed. Case discussed in Team Rounds. Dr. Blevins noted that surgery consulted and procedure completed resulting in large food bolus removal (pork chop). COMPLEX DIRECTOR eval was ordered. Met with pt and his just as the COMPLEX DIRECTOR eval was being completed. COMPLEX DIRECTOR confirms she has identified more of a chewing problem/pt with hx of refusing dental treatment. She is giving them some recommendations for home diet changes. , Gloria, seems quite aware and attentive of these needs. Pt just says can I go home today?. HH RN discussed (the couple is homebound, per Gloria). Thought is that HH RN can assist pt and his in implementing the dietary recommendations and bring in COMPLEX DIRECTOR if needed. Pt is a bit resistand to advice, it appears, and does not wish to be overwhelmed with people in and out of the house. Pt is not expected to go home today. Agreed to check in tomorrow and follow... agency list: discussed: decision: So if can go out in timely way.. left for [facility]. [facility] will [facility] initial referral information including the COMPLEX DIRECTOR eval.
--- NOTE | 2018-06-08 12:12 | PM.PN.1 ---
Subjective Date Patient Seen: 06/08/18 Time Patient Seen: 12:12 Interval history: Patient did well overnight. He is currently tolerating clear liquid diet along with medications without any issues. No further regurgitation or vomiting. No nausea. Denies any chest pain or shortness of breath. Overall he states he is feeling much better this morning. Heart rate remained stable as well. His is at the bedside today. Patient denies abdominal pain. Exam Vital Signs (past 8 hours): - 06/08/18 08:00 06/08/18 08:04 06/08/18 09:00 Temperature 98.7 F Pulse Rate 77 80 90 Respiratory Rate 20 20 15 Blood Pressure 111/52 L 126/57 L 137/64 Pulse Oximetry 96 93 96 06/08/18 10:00 Temperature Pulse Rate 56 L Respiratory Rate 11 L Blood Pressure 111/65 Pulse Oximetry 95 Fraction of Inspired Oxygen 0.21 Oxygen Delivery Method Room Air Oxygen Flow Rate 0 Narrative Exam Narrative: Obese elderly male sitting in bedside chair in no acute distress. Alert oriented x3. He is in good spirits. Rate is currently controlled. No crackles or wheezes Abdomen is soft, nondistended, nontender, no masses Neck is supple without masses. Trachea is midline. Again, he has tolerated oral intake this morning without any issues. Objective Labs Result Diagrams: 06/07/18 04:42 06/07/18 04:42 Labs: No new laboratory or radiographic studies for review today. Assessment & Plan Plan: Assessment/Plan Narrative: 77-year-old male doing well status post EGD with removal of food bolus impaction last evening. He is having no further issues. I would recommend soft diet. I counseled him and his regarding soft foods and avoidance of food such as steak or pork that is difficult to chew and swallow. This is particularly important given the patient's poor dentition. He may have ground meats however from my perspective. Apparently speech therapy has evaluated the patient and recommended mechanical soft diet as well. Patient voiced understanding. All questions were answered to his satisfaction. We will return him to the care of the Internal Medicine Service, be we are happy to see him at any time for any new or recurrent issues. Quality VTE Deep Vein Thrombosis/Pulmonary Embolism Present on Admission: No
[2018-06-08] MEDS: CEFTRIAXONE 1 GM/50 ML FROZ.PIGGY IV (12:35)
[2018-06-08] MEDS: INSULIN ASPART 100 UNIT/ML INSULN PEN SUBCUT (12:36)
[2018-06-08] MEDS: OXYCODONE IR 5 MG TABLET 10 MG PO ×2 (13:27→20:30)
--- NOTE | 2018-06-08 14:58 | PC.NURSE ---
Transfer Note Transferred to room 226 via bed, on telemetry aflutter CVR. Diltiazem gtt off since 1000, pt back on all PO meds - tolerating clears and meds with no nausea or vomiting. All belongings with pt including meds, glasses, clothing. present at time of transfer and updated.
--- NOTE | 2018-06-08 15:45 | ST.IPIE ---
Care Team Visit Care Team Role Provider Type Mitzi Gross MD Primary Care Provider Non-Staff Specialty: Medical Address: [address] [place] [address], [phone] Email: Neel Pedersen MD Other Providers Physician Specialty: General Surgery Address: [address] [place] [address], [id number] Email: [email or web address] Antonieta Yee MD Emergency Provider Physician Specialty: Emergency Medicine Address: [address] [place] [address], [id number] Email: Morteza Beaulieu MD Admit Provider Physician Attending Provider Specialty: Medical Address: [address] [place] [address], [phone] Email: Current Diagnoses Type 2 diabetes mellitus with diabetic autonomic (poly)neuropathy (06/05/18) Obstructive sleep apnea (adult) (pediatric) (06/05/18) Myasthenia gravis without (acute) exacerbation (06/05/18) Unspecified atrial fibrillation (06/05/18) Gastroparesis (06/05/18) Urinary tract infection, site not specified (06/05/18) Nausea with vomiting, unspecified (06/05/18) Past Medical History (Last Reviewed 06/07/18 @ 20:00 by Neel Pedersen MD) Obstructive sleep apnea of adult (Chronic Medical) Continue cpap Primary insomnia (Chronic Medical) Snoring (Chronic Medical) Depression (Acute Medical) Hiatal hernia (Acute Medical) Hypercholesteremia (Acute Medical) Hypertension (Acute Medical) Benign prostatic hyperplasia (Chronic Medical) H/O ischemic heart disease (Chronic Medical) Hearing difficulty of right ear (Chronic Medical) History of lower GI bleeding (Chronic Medical) 2004: Transfused 5 units blood, hospitalized 2010: Transfused 7 units blood, 2 unit platelets; 5 days hospitalized Hx of upper gastrointestinal hemorrhage (Chronic Medical) Attributed to NSAIDs Morbid obesity with BMI of 40.0-44.9, adult (Chronic Medical) Myasthenia gravis (Chronic Medical) Spondylolysis, cervical region (Chronic Medical) C5-C7 fusion Spondylosis of lumbar spine (Chronic Medical) Multiple ESIs Type 2 diabetes mellitus (Chronic Medical) Hx of transient ischemic attack (TIA) (Inactive Medical) ST IP Initial Evaulation Report CITY DESIGNER Clinical Swallow Evaluation Start: 06/08/18 13:55 Freq: Status: Active Protocol: Document 06/08/18 13:56 LNK (Rec: 06/08/18 14:31 LNK [id number]) Clinical Swallow Evaluation Session Time Visit Start Time 10:30 Visit Stop Time 11:15 Total Visit Minutes 45 Setting Assessment Location Acute Care Visit Type Note Type Initial Evaluation Next Note Type Next Note Type Treatment Note Patient Information Identification Type Name ID Card History Pt is a 77-year-old male admitted to the ER after vomiting for about 4 days. It began in the evening and has led to him not being able to keep down his medication etc. He underwent an emergent EGD. During the procedure the stomach was suctioned of air and fluid after verifying impacted food material was within the gastric lumen. Pt has safely tonerated a full liquid diet. Swallowing evaluation ordered to determine if oropharyngesl dysphagis was a contributing factor to the imtomach which was suctioned of air and fluid after verifying that the impacted food material was indeed in the gastric lumen. Swallow evauation was ordered to determine sadfety fro PO intake. Patient History Medical History (Reviewed @ 16:54 by Morteza Beaulieu MD) Obstructive sleep apnea of adult (Chronic) Primary insomnia (Chronic) Snoring (Chronic) Benign prostatic hyperplasia ( Chronic) H/O ischemic heart disease ( Chronic) Hearing difficulty of right ear (Chronic) History of lower GI bleeding ( Chronic) Hx of upper gastrointestinal hemorrhage (Chronic) Morbid obesity with BMI of 40. 0-44.9, adult (Chronic) Myasthenia gravis (Chronic) Spondylolysis, cervical region (Chronic) Spondylosis of lumbar spine ( Chronic) Type 2 diabetes mellitus ( Chronic) Hx of transient ischemic attack (TIA) (Inactive) Subjective Observations Pt in bed. Self-transferred to bedside chair. in the room. She informed this CITY DESIGNER that about 18 months ago the pt had an MBSS procedure. Review of the MBSS indicated that the pt had a history of oropharyngesl dysphagia and aspiration pneumonia. Further , a barium swallow procedure completed in January 2017 indicated that the pt's peristolsis was very slow vith a barium tablet stuck in the esophagus (due to spasm) and did not pass into the stomach during the test. Evaluation Liquids Trialed Ice Chips Thin Solids Trialed Puree Dysphagia Advanced Mechanical Soft Regular Administration Type Tea Spoon Cup Single Sip Controlled Cup Sip Straw Self-Feeding Dependent Feeding Oral Impairment Severely Impaired Oral Strategies Upright at 90 degrees Controlled Bite/Sip Size Alternate Liquids/Solids Oral Phase Comments Oral motor examination indicated slowed diadochokinetic movements.. Additionally he presented with no upper teeth (no dentures) and several lower teeth broken at the gumline. He essentially has 2-3 teeth on lower arch. Strength and ROM were WFL. Pt was unable to adequately masticate sliced turkey, which was presented in a small (i.e., shaggy-sized) piece and swallowed whole. He safely tolerated all trials; however, due to the lack of adequate dentition, a mechanical soft texture was recommended as it can be essentially squished with the tongue. Meats should be soft and easily broken down in his mouth. Pharyngeal Impairment Mildly Impaired Pharyngeal Strategies Sitting Upright (90 deg) Effortful Swallow Small Bites and Sips Alternate Liquids/Solids Pharyngeal Phase Comments Pt's swallow was slightly delay with the hyolaryngeal elevation and forward excursion of the hyoid WFL. The pt frequently took time to initiate the swallow. He did need to clear his throat a couple of times followed by a spontaneous swallow. No wet voicing present following trials. Review of the MBS (01/2017) indicated the pt had significant pharyngeal pooling and needed 2 swallows to adequately clear the pooling. He also presented at that time with inconsistent penetration of the laryngeal vestibule. No aspiration was observed at that time. Out patient swallow therapy was recommended but was not followed through by the patient. Findings Dysphagia Type Mild-moderate oropharyngesl dysphagia Rehabilitation Potential Fair Diet Recommendations Liquids Order Thin Diet Order Mechanical Soft Medication Recommendations Crushed in Carrier Comments thin diameter straws only to control liquid flow Additional Dietary Needs Chopped Food Controlled Sips 1:1 Supervision Encourage to Self-Feed Reminders to Use Strategies Aspiration Precautions Recommended Precautions Upright at 90 Degrees Alternate Liquids/Solids Frequent Rest Periods Small Bites/Sips Effortful Swallow Treatment Plan Placement Recommendations after Home Discharge Appropriate for Therapy Yes Therapy Recommendations Dysphagia therapy while inpatient and follow up if discharged to SNF Dysphagia Goals Pt will safely tolerate the least restrictive diet to meet nutritional anf hydration needs, Pt will follow safe swallow strategies to reduce the risk of aspiration. CITY DESIGNER Follow Up CITY DESIGNER spent ~25 minutes with pt' s providing strategy and diet texture ed
[2018-06-08] MEDS: PANTOPRAZOLE 20 MG TABLET PO (20:31)
[2018-06-08] MEDS: DOXAZOSIN 4 MG TABLET 12 MG PO (20:32)
[2018-06-08] MEDS: SIMVASTATIN 40 MG TABLET PO (20:39)
--- NOTE | 2018-06-08 21:36 | PC.NURSE ---
HR HR elevated to 118 via tele monitor when pt OOB to ambulate to BR. settles back to 60s at rest.
[2018-06-09] MEDS: OXYCODONE IR 5 MG TABLET 10 MG PO (01:52)
--- NOTE | 2018-06-09 04:58 | PC.NURSE ---
no n/v. pt had some peppermint tea for his congestion. Blood sugar was 57, gave orange juice and tolerated it, B. medicated pt with oxycodone for his chronic back pain. call light in reach. SBA to the BR w/FWW.
[2018-06-09] MEDS: FLUTICASONE 120 SPRAY/16 GM SPRAY.SUSP NASAL (05:40)
[2018-06-09 05:51] LABS: Add Manual Diff / Slide Review NO; Basophils Percent Auto 0.6 % (0-2); Eosinophils Percent Auto 2.2 % (2-4); Hematocrit 32.9 % (41-53); Lymphocytes Percent Auto 17.6 % (25-40); Mean Corpuscular HGB Conc 33.3 % (30-36); Monocytes Percent Auto 9.8 % (3-14); Neutrophils Absolute Auto 5900 /uL (3000-5900); Neutrophils Percent Auto 69.8 % (50-75); Platelet Count 185 X10^3/uL (150-400); Red Blood Cell Count 3.54 X10^6/uL (4.5-5.9); Red Cell Distribution Width 13.8 % (11.6-14.8); White Blood Cell Count 8.5 X10^3/uL (4.5-11.0)
[2018-06-09 05:54] VITALS: BP 133/75; PULSE 86; RESP 16; TEMP 37; O2SAT 98
[2018-06-09 06:00] LABS: BUN Creatinine Ratio 12.5 (6-22); Blood Urea Nitrogen 10 mg/dL (9-20); Calcium 7.8 mg/dL (8.4-10.2); Carbon Dioxide 27 mmol/L (22-32); Chloride 103 mmol/L (98-107); Estimated Glomerular Filt Rate > 60.0 mL/min (>60); Glucose 81 mg/dL (80-110); HEMOLYSIS < 15 (0-50); Potassium 3.2 mmol/L (3.4-5.1); Sodium 139 mmol/L (137-145)
[2018-06-09] MEDS: PANTOPRAZOLE 20 MG TABLET PO (06:54)
[2018-06-09 07:20] VITALS: BP 132/64; PULSE 79; RESP 16; TEMP 36.5; O2SAT 96
[2018-06-09] MEDS: DEXTROSE 5%-0.9% NS 1,000 ML 100 ML IV (09:02)
[2018-06-09 09:53] VITALS: BP 132/64
[2018-06-09] MEDS: FERROUS SULFATE 325 MG TABLET PO (09:53)
[2018-06-09] MEDS: FINASTERIDE 5 MG TABLET PO (09:53)
[2018-06-09] MEDS: CLOPIDOGREL 75 MG TABLET PO (09:53)
[2018-06-09] MEDS: LISINOPRIL 10 MG TABLET PO (09:53)
[2018-06-09] MEDS: ENOXAPARIN 40 MG/0.4 ML SYRINGE SUBCUT (09:54)
[2018-06-09] MEDS: LORATADINE 10 MG TABLET PO (09:54)
[2018-06-09 09:55] VITALS: BP 132/64
[2018-06-09] MEDS: METOPROLOL ER 50 MG TABLET 100 MG PO (09:55)
[2018-06-09] MEDS: SERTRALINE 50 MG TABLET PO (09:56)
[2018-06-09] MEDS: VITAMIN E 400 UNIT CAPSULE PO (09:56)
[2018-06-09] MEDS: PIOGLITAZONE 15 MG TABLET 45 MG PO (09:57)
[2018-06-09] MEDS: PYRIDOSTIGMINE 60 MG TABLET PO (09:57)
[2018-06-09] MEDS: MULTIVITAMIN 1 TABLET 1 TAB PO (09:58)
[2018-06-09] MEDS: NYSTATIN POWDER 30 GM 1 APPLIC TOP (09:58)
[2018-06-09] MEDS: LIDOCAINE PATCH 1 EACH ADH..PATCH TOP (09:59)
[2018-06-09] MEDS: INSULIN GLARGINE 100 UNIT/ML 3ML PEN 30 UNIT SUBCUT (10:18)
--- NOTE | 2018-06-09 11:52 | P.DS_ITS ---
History of Present Illness Date Patient Seen: 06/09/18 Time Patient Seen: 11:41 Chief complaint: Vomitting since wednesday Narrative: 77-year-old male with significant comorbid medical conditions was in his baseline state of health at home with his when he experienced acute onset of nausea and regurgitation immediately following his evening meal 4 days ago now. He does not recall exactly what he was eating at that time although he believes he may have had a pork chop is the main course. Denies any dysphagia or odynophagia in the past. No particular similar symptoms at the time of his evening meal. However, he states to me this evening that shortly within 1 or 2 min after finishing the last bite of his dinner he immediately began to regurgitate undigested food. Since that time he has been unable to tolerate even sips of water. He feels he is tolerating his own secretions however. Nevertheless he does have a mildly productive cough of clear sputum. He has never had any real similar symptoms in the past. No history of foreign body impaction. He has had no prior EGD by his recollection. Denies any chest pain or shortness of breath currently. No abdominal pain. He has not had a bowel movement in 4 days however. He has no known history of gastroparesis although he has been a diabetic for number of years. Denies any history of neck surgery or radiation therapy. No recent neck masses on self examination. No voice changes. No fever or chills. After 36 hr of inability to tolerate even liquids including water he was brought to the emergency department by his . Patient had not been able to take any of his usual medications for his multiple comorbid medical conditions during that time as well. Discharge Providers Date of admission: 06/05/18 13:34 Primary care physician: Mitzi Gross MD Consults: 06/05/18 20:20 Consult to Respiratory Therapy Evaluate & Treat Comment: wheezing, JASPER, home inhaler unsure of type. Physician Instructions: Evaluate and treat 06/07/18 17:54 Consult to Physician Routine Comment: Consulting Provider: Neel Pedersen Reason for consultation: Nausea 06/07/18 18:12 Consult to Pharmacy Routine Comment: Need order for mestinon 2 mg IV every four hours. 06/08/18 10:37 Consult to Speech Therapy Evaluate & Treat Comment: Physician Instructions: Evaluate and treat Discharge provider: Elvia Blevins MD Discharge Date: 06/09/18 Summary Discharge Diagnosis: Dysphagia, resolved AFib, rate controlled now Intractable vomiting, resolved UTI, finished antibiotic course Myasthenia Gravis, stable JASPER, stable DM Type II, controlled CAD, controlled Hospital Course: On admission, patient was found to be in atrial fibrillation with rapid ventricular response. He was admitted to ICU and started initially on esmolol drip, followed by cardizem drip, which converted him to rate conrol. Throughout hospital admission patient was unable to tolerate any type of oral intake other than a few ice chips, and therefore surgery was consulted. Patient underwent EGD, which revealed impacted food bolus that was removed and erosive esophagitis. Patient was started on Protonix PO BID and started on CLD. He tolerated CLD well and subsequently switched to mechanical soft foods, as he has poor dentition and unable to fully chew through foods. His Diltiazem drip was switched off and home medications Metoprolol were resumed, with HR remaining stable. Patient was noted to have UTI on admission and started on Ceftriaxone IV. By the time cultures came back as streptococcus hemolyticus, patient already received 4 days of IV antibiotics; therefore antibiotics were stopped. Patient was discharged home with follow up to PCP within 1 week of discharge. Exam Vital Signs (past 8 hours): - 06/09/18 05:54 06/09/18 07:20 06/09/18 09:53 Temperature 98.6 F 97.7 F Pulse Rate 86 79 Respiratory Rate 16 16 Blood Pressure 133/75 132/64 132/64 Pulse Oximetry 98 96 06/09/18 09:55 Temperature Pulse Rate Respiratory Rate Blood Pressure 132/64 Pulse Oximetry Fraction of Inspired Oxygen 0.21 Oxygen Delivery Method CPAP Oxygen Flow Rate 0 Narrative Exam Narrative: Gen: NAD, AAOx3 HEENT: PERRLA BL, poor dentition (teeth grinded down to minimal) CV: Irregularly irregular rhythm, no murmurs or gallops noted Resp: CTA BL, no wheezing or crackles GI: +BS, soft, nontender. No organomegally. Obese abd Ext: No edema Skin: No lesions or bruising MSK: moves all ext BL Neuro: NFD, CN II-XII intact Psych: Mood is appropriate. Eager to go home Objective Labs Result Diagrams: 06/09/18 05:21 06/09/18 05:21 Labs: Laboratory Results - last 24 hr 06/09/18 06/09/18 05:21 05:21 WBC 8.5 RBC 3.54 L Hgb 11.0 L Hct 32.9 L MCV 93.0 MCH 31.0 MCHC 33.3 RDW 13.8 Plt Count 185 Neut % (Auto) 69.8 Lymph % (Auto) 17.6 L [place] % (Auto) 9.8 Eos % (Auto) 2.2 Baso % (Auto) 0.6 Neut # (Auto) 5900 Sodium 139 Potassium 3.2 L Chloride 103 Carbon Dioxide 27 BUN 10 Creatinine 0.80 Estimated GFR > 60.0 BUN/Creatinine Ratio 12.5 Glucose 81 Calcium 7.8 L Discharge Plan Discharge Plan Patient Disposition: Home Discharge Med Rec/Prescriptions Prescriptions: New pantoprazole 20 mg Tablet,Delayed Release (Dr/Ec) 20 mg PO 0700,2100 30 Days Qty: 60 RF: 0 Continue pioglitazone [Actos] 45 MG tablet 45 mg PO QDAY Qty: 0 RF: 0 triamterene-hydrochlorothiazid 75 MG/50 MG tablet 1 tab PO DAILY Qty: 0 RF: 0 lisinopril 10 MG tablet 10 mg PO QDAY Qty: 0 RF: 0 sertraline [Zoloft] 50 MG tablet 50 mg PO QDAY Qty: 0 RF: 0 simvastatin [Zocor] 40 MG tablet 40 mg PO HS Qty: 0 RF: 0 finasteride 5 MG tablet 5 mg PO QDAY Qty: 0 RF: 0 ferrous sulfate 325 mg (65 mg iron) Tablet 325 mg PO QDAY Qty: 0 RF: 0 vitamin E 400 unit Capsule 400 units PO QDAY Qty: 0 RF: 0 vitamin B complex Capsule 1 cap PO DAILY Qty: 0 RF: 0 multivitamin Tablet 1 tab PO DAILY Qty: 0 RF: 0 fluticasone-salmeterol [Advair Diskus] 250 MCG/50 MCG blister with device 1 puff INH BID Qty: 0 RF: 0 insulin aspart U-100 [Novolog U-100 Insulin aspart] 100 UNIT/1 ML solution SQ QIDACHS Qty: 0 RF: 0 metoprolol succinate 100 MG tablet extended release 24 hr 50 mg PO BID Qty: 0 RF: 0 lidocaine [Lidoderm] 1 EACH adhesive patch,medicated 1 patch Topical Q12H Qty: 0 RF: 0 doxazosin 4 MG tablet 12 mg PO HS Qty: 0 RF: 0 omeprazole 20 MG tablet,delayed release (DR/EC) 20 mg PO BID Qty: 0 RF: 0 oxycodone 5 MG tablet 10 mg PO QIDP PRNQty: 30 RF: 0 oxycodone [OxyContin] 10 MG tablet,oral only,ext.rel.12 hr 10 mg PO BID Qty: 60 RF: 0 insulin glargine [Lantus Solostar U-100 Insulin] 100 UNIT/1 ML insulin pen 40 units BID Qty: 0 RF: 0 pyridostigmine bromide [Mestinon] 60 MG tablet 60 mg PO TID Qty: 275 RF: 3 fluticasone [Allergy Relief (fluticasone)] 50 mcg/actuation spray,suspension 2 spray NASAL DAILY Qty: 47.4 RF: 3 clopidogrel 75 mg tablet 75 mg PO DAILY RF: 0 loratadine [Claritin] 10 mg tablet 10 mg PO DAILY RF: 0 Provider Discharge Instructions Diet: Diet as Tolerated Diet comment: Mechanical soft diet. Avoid chunks of meat but can eat ground meat Discharge Data Primary Care Provider: Mitzi Gross Attending Provider: Morteza Beaulieu Admit Date/Time: 06/05/18 13:34 Quality VTE Deep Vein Thrombosis/Pulmonary Embolism Present on Admission: No
[2018-06-09] MEDS: POTASSIUM CHLORIDE 20 MEQ TAB 40 MEQ PO (12:11)
--- NOTE | 2018-06-09 13:19 | CM.DPNOTE ---
DCP: continued: pt now in room 226. Checked in with pt and his as they were finishing lunch. DC for today has been ordered. , Gloria, confirms that they have a good understanding of the food texture requirements but she still feels that a [facility] RN following with be of good support to her. All is set with [facility]. DC summary, orders and Face/Face are now faxed to the [phone] referral number and a vm is left for [place] or colleague on the cell. [facility] brochure provided to pt and Gloria. Home as planned.
--- NOTE | 2018-06-09 13:41 | PC.NURSE ---
Pt states he tolerated his [facility] soft meal well. agrees. Pt dressed, iv removed, discharge meds and script reviewed with Spouse. Discussed diet-soft and follow up. Pt and Spouse denied further questions and was taken out via w/c to POV with Spouse and all belongings.
== END 2018-06-09 13:44 | disposition home health service (06) | DRG 309 ==
LOC: ED 08:07 → ICU 13:35 → AC 06-09 11:52 → ICU 05-08 12:12
PROVIDERS: Internal Medicine; Surgery; Admitting Provider Family Medicine; Emergency Provider Emergency Medicine; PCP Internal Medicine; Visit Provider Family Medicine
PROC: 0DJ08ZZ Inspection of Upper Intestinal Tract, Via Natural or Artificial Opening Endoscopic (ICD-10-PCS; CPT 43235; principal; 2018-06-07 20:15)
DX: I48.91 Unspecified atrial fibrillation (principal); N39.0 Urinary tract infection, site not specified; Z68.41 Body mass index [BMI] 40.0-44.9, adult; B37.81 Candidal esophagitis; K22.10 Ulcer of esophagus without bleeding; G47.33 Obstructive sleep apnea (adult) (pediatric); G70.00 Myasthenia gravis without (acute) exacerbation; E66.01 Morbid (severe) obesity due to excess calories; Z79.4 Long term (current) use of insulin; T18.128A Food in esophagus causing other injury, initial encounter; E11.9 Type 2 diabetes mellitus without complications; Z87.891 Personal history of nicotine dependence; R13.10 Dysphagia, unspecified; I25.10 Atherosclerotic heart disease of native coronary artery without angina pectoris
CPT/HCPCS: 36415; 36591; 43247; 71045; 74022; 76700; 80048; 80053; 81001; 82962; 84484; 85025; 87077; 87086; 87400; 87797; 92526; 92610; 93005; 93306; 94640; 99221; 99231; 99284; C9113; J0330; J1160; J1170; J1650; J2270; J2405; J2704; J2765; J3010; J7614

== ENCOUNTER → 2019-03-28 15:10 | Outpatient (CLI) | payer MEDICARE, OTHER, SELFPAY ==
[2018-06-05 14:41] VITALS: BMI 41.1
--- NOTE | 2019-03-28 | DI.RAD.S_ITS ---
PROCEDURE: XR SHOULDER RT MIN 2V INDICATIONS: R SHOULDER PAIN TECHNIQUE: 3 views of the shoulder were acquired. COMPARISON: None. FINDINGS: Bones: No fractures or dislocations. No suspicious bony lesions. Visualized ribs appear intact. Mild to moderate acromioclavicular joint osteophyte disc. Mild glenohumeral joint osteoarthritis. No erosive changes. Median sternotomy wires partially visualized. Soft tissues: No suspicious soft tissue calcifications. IMPRESSION: [id number] acromioclavicular joint and mild glenohumeral joint osteoarthritis. Dictated by: Esther Murphy MD, PhD on 03/28/2019 at 18:06 Approved by: Esther Murphy MD, PhD on 03/28/2019 at 18:06
== END ==
PROVIDERS: PCP Internal Medicine; Visit Provider Family Medicine
DX: M25.511 Pain in right shoulder (principal); M19.011 Primary osteoarthritis, right shoulder
CPT/HCPCS: 73030

== ENCOUNTER → 2020-01-30 13:14 | Outpatient (CLI) | payer MEDICARE, OTHER, SELFPAY ==
[2018-06-05 14:41] VITALS: BMI 41.1
--- NOTE | 2020-01-30 | DI.RAD.S_ITS ---
PROCEDURE: FL BARIUM SWALLOW W SPEECH INDICATIONS: Dysphagia, unspecified TECHNIQUE: Examination was conducted in conjunction with speech pathology per standard protocol. In the lateral projection, filming was performed of the patient swallowing. AP projection filming may also be performed with patient swallowing. COMPARISON: None. FINDINGS: Function: The oral preparatory phase appears normal, with proper containment. The subsequent oral propulsive phase, pharyngeal phase, and esophageal phase of swallowing also appear normal with all proffered substances. No laryngotracheal penetration or aspiration. There is consistent pooling of contrast material in vallecula which is easily cleared with repeat swallows. There was occasional pooling of contrast material in the piriform sinuses which is a cleared with repeat swallows. Morphology: No cricopharyngeal bar is identified. No cervical esophageal webs. No Zenker's diverticulum. No strictures. IMPRESSION: 1. No aspiration or laryngeal tracheal penetration. 2. Vallecula and piriform sinus pooling which is readily cleared with repeat swallows. Dictated by: Esther Murphy MD, PhD on 01/30/2020 at 16:02 Approved by: Esther Murphy MD, PhD on 01/30/2020 at 16:04
--- NOTE | 2020-01-30 14:56 | ST.SWALLOW ---
Visit Care Team Role Provider Type Marin Hewitt MD Primary Care Provider Physician Specialty: Family Practice Address: [address], [address], [place], [address] Email: Alyssa Fregoso PA-C Attending Provider Non-Staff Referring Provider Specialty: Medical Address: [address] [place] [address], [id number] Email: Modified Barium Swallow Study MANAGER PMO Modified Barium Swallow Study Start: 01/30/20 14:13 Freq: Status: Active Protocol: Document 01/30/20 14:13 TLC (Rec: 01/30/20 14:56 TLC [id number]) Modified Barium Swallow Study Total Time Visit Start Time 13:30 Visit Stop Time 13:45 Total Visit Minutes 15 Referral Referring Physician Alyssa Fregoso PA-C Reason for Referral Dysphagia Setting Setting Outpatient Care Patient Information Patient History Med Hx: Myasthenia gravis, CAD , TIA, Diabetes Type II, HTN, Hyperlipidemia, chronic A-fib, CHF, COPD, chronic back pain, obstructive sleep apnea, pneumonia, obesity Patient had previous MBSS completed in January of 2017 which revealed mild-moderate pharyngeal dysphagia characterized by delayed swallow initiation, flash penetration with thin liquids, pharyngeal residue pooling primarily in vallecula. He also had a Barium swallow in January of 2017 which indicated marked esophageal dysmotility, small Zenker's diverticulum and a prominent amount of residual contrast within the esophagus. Subjective Observations Patient was alert and oriented . He reports globus sensation with solids and occasional choking on liquids (~1x/month) . He denies reflux or any recent pneumonia Patient Positioning Position View Lateral Imaging Lateral View Textures Administered Trials Presented Thin Liquid via Spoon,Thin Liquid via Cup,[place] Liquid via Spoon,[place] Liquid via Cup,Honey Liquid via Spoon, Dysphagia Blenderized Textures ,Regular Textures Oral Phase Source: MBSIMP (TM) (C) Bolus Specific Scoring Grid Lip Closure No Impairment (WNL) Tongue Control During Bolus Hold No Impairment (WNL) Bolus Prep/Mastication WFL Bolus Transport/Lingual Motion WFL Oral Residue Minimal Impairment Additional Oral Phase Observations Bolus preparation/mastication for 1/2 shortbread cookie demonstrated slow prolonged chewing/mashing with complete re-collection. Bolus transport /lingual motion was repetitive /disorganized. A collection of cookie residue remained in oral cavity following the first swallow. Initiation of the pharyngeal swallow was delayed to the level of the pyriforms. Pharyngeal Phase Source: MBSIMP (TM) (C) Bolus Specific Scoring Grid Soft Palate Elevation No Impairment (WNL) Laryngeal Elevation No Impairment (WNL) Anterior Hyoid Movement Minimal Impairment Epiglottic Range of Motion No Impairment (WNL) Vallecular Residue Yes Laryngeal Vestibular Closure No Impairment (WNL) Upper Esophageal Sphincter Opening Minimal Impairment Residue in the Pyriform Sinuses Yes Additional Pharyngeal Phase Observations No bolus between soft palate/ pharyngeal wall. Laryngeal elevation was complete. Anterior hyoid excursion demonstrated partial anterior movement. Epiglottic movement was complete with complete inversion. Laryngeal vestibular closure was complete with no episodes of penetration or aspiration during the study. (Penetration Aspiration Scale Score 1) Pharyngoesophageal segment opening demonstrated complete distension and partial duration resulting in collection of residue on the pharyngeal structures. Compensatory strategies trialed included a cued dry swallow which was effective in reducing pharyngeal residue. A/P View Clinical Impressions Findings Mild oropharyngeal dysphagia as stated above; however, patient's swallow remains functional and cause of symptoms are likely related to esophageal impairments as identified in previous barium swallow. Discussed results with patient and provided education regarding small bites/sips and multiple swallows to clear pharyngeal residue and decrease aspiration risk. Patient Appropriate for Therapy Patient may require follow-up appt for ongoing education Recommendations Aspiration Precautions Recommended Precautions Upright at 90 Degrees Treatment Plan Compensatory Strategies Recommendations Double Swallow,Small Bites and Sips
== END ==
PROVIDERS: PCP Family Medicine; Referring Provider Physician Assistant; Visit Provider Physician Assistant
DX: R13.10 Dysphagia, unspecified (principal)
CPT/HCPCS: 74230; 92611

== ENCOUNTER → 2020-08-16 14:39 | Outpatient (CLI) | payer MEDICARE, OTHER, SELFPAY ==
[2018-06-05 14:41] VITALS: BMI 41.1
[2020-08-16 15:26] LABS: Add Manual Diff / Slide Review NO; Basophils Absolute Auto 0 /uL (0-100); Basophils Percent Auto 0.6 % (0-2); Eosinophils Absolute Auto 200 /uL (0-450); Eosinophils Percent Auto 3.1 % (2-4); Hematocrit 32.1 % (41-53); Hemoglobin 10.5 g/dL (13.5-17.5); Lymphocytes Absolute Auto 1100 /uL (1100-4500); Mean Corpuscular HGB Conc 32.6 % (30-36); Mean Corpuscular Hemoglobin 31.1 PG (26-34); Mean Corpuscular Volume 95.3 fL (80-100); Monocytes Absolute Auto 700 /uL (0-900); Monocytes Percent Auto 9.9 % (3-14); Neutrophils Absolute Auto 4700 /uL (1500-7000); Neutrophils Percent Auto 69.4 % (50-75); Platelet Count 220 X10^3/uL (150-400); Red Blood Cell Count 3.37 X10^6/uL (4.5-5.9); Red Cell Distribution Width 12.8 % (11.6-14.8); White Blood Cell Count 6.8 X10^3/uL (4.5-11.0)
[2020-08-16 15:35] LABS: Hemoglobin A1C% w Est Avg Glu 6.9 % (4.0-6.0)
[2020-08-16 15:41] LABS: Alanine Aminotransferase 20 IU/L (<50); Albumin 4.2 g/dL (3.5-5.0); Albumin Globulin Ratio 1.3 (1.0-2.8); Alkaline Phosphatase 96 U/L (38-126); Aspartate Aminotransferase 26 IU/L (17-59); BUN Creatinine Ratio 23.8 (6-22); Bilirubin Total 0.3 mg/dL (0.2-1.3); Blood Urea Nitrogen 20 mg/dL (9-20); Calcium 9.5 mg/dL (8.4-10.2); Carbon Dioxide 30 mmol/L (22-32); Chloride 106 mmol/L (98-107); Estimated Glomerular Filt Rate > 60.0 mL/min (>60); Globulin 3.2 g/dL (1.7-4.1); Glucose 129 mg/dL (80-110); HEMOLYSIS < 15 (0-50); Potassium 3.9 mmol/L (3.4-5.1); Sodium 136 mmol/L (137-145); Total Protein 7.4 g/dL (6.3-8.2)
== END ==
PROVIDERS: PCP Family Medicine; Referring Provider Family Medicine; Visit Provider Family Medicine
DX: D53.9 Nutritional anemia, unspecified (principal); E11.9 Type 2 diabetes mellitus without complications; I10 Essential (primary) hypertension; R53.0 Neoplastic (malignant) related fatigue
CPT/HCPCS: 36415; 80053; 83036; 85025

== ENCOUNTER 2020-08-29 00:28 | Emergency (ER) | payer MEDICARE, OTHER, SELFPAY ==
[2018-06-05 14:41] VITALS: BMI 41.1
[2020-08-29] VITALS (67 sets, daily range): BP systolic 68–134; BP diastolic 34–81; PULSE 89–127; RESP 18–50; TEMP 36.7–38.2; O2SAT 81–99; BMI 39.6
--- NOTE | 2020-08-29 01:00 | DI.RAD.S_ITS ---
PROCEDURE: XR CHEST 1V INDICATIONS: Shortness of breath TECHNIQUE: One view of the chest was acquired. COMPARISON: [facility], CR, XR CHEST 1V, 06/05/2018, 8:31. FINDINGS: Surgical changes and devices: Status post CABG. Lungs and pleura: Lungs are clear. No pleural effusions or pneumothorax. Mediastinum: Mediastinal contours appear normal. Heart size is normal. Bones and chest wall: No suspicious bony lesions. Overlying soft tissues appear unremarkable. IMPRESSION: No acute cardiopulmonary disease process. Dictated by: Esther Murphy MD, PhD on 08/29/2020 at 8:58 Approved by: Esther Murphy MD, PhD on 08/29/2020 at 8:59
--- NOTE | 2020-08-29 01:09 | ED.SOB ---
HPI - SOB/Dyspnea General Chief Complaint: Shortness of Breath/Dyspnea Stated Complaint: Fever/SOB,Weakness Time Seen by Provider: 08/29/20 00:59 Source: EMS Mode of arrival: EMS Limitations: altered mental status History of Present Illness HPI Narrative: Patient is an 80-year-old male with history of atrial fibrillation presenting with weakness and shortness of breath. He says it has been going on for about 1 day. He denies any productive cough. He states that his breathing is better when he sits up other than lice down. He denies any chest pain but is noted be in atrial flutter on the monitor. He denies any palpitations. He has no productive cough he is noted to have a low-grade fever but denies any chills or sweats. He has no abdominal pain nausea or vomiting. He has some shortness of breath with exertion. He denies any swelling of his legs. I spoke with his who states that she knew something was wrong when he was trying to sit in her chair. She states that they each have their own chair and it is extremely unusual for him to be sitting in her chair. MD Complaint: shortness of breath Related Data Home Medications Medication Instructions Recorded Confirmed ferrous sulfate 325 mg PO QDAY #0 08/16/12 07/09/20 finasteride 5 mg PO QDAY #0 08/16/12 07/09/20 lisinopril 10 mg PO QDAY #0 08/16/12 07/09/20 multivitamin 1 tab PO DAILY #0 08/16/12 07/09/20 pioglitazone [Actos] 45 mg PO QDAY #0 08/16/12 07/09/20 sertraline [Zoloft] 50 mg PO QDAY #0 08/16/12 07/09/20 simvastatin [Zocor] 40 mg PO HS #0 08/16/12 07/09/20 triamterene-hydrochlorothiazid 1 tab PO DAILY #0 08/16/12 07/09/20 vitamin B complex 1 cap PO DAILY #0 08/16/12 07/09/20 vitamin E 400 units PO QDAY #0 08/16/12 07/09/20 doxazosin 12 mg PO HS #0 12/23/16 07/09/20 fluticasone propion-salmeterol 1 puff INH BID #0 12/23/16 07/09/20 [Advair Diskus] insulin aspart U-100 [Novolog 0 unit SQ QIDACHS #0 12/23/16 07/09/20 U-100 Insulin aspart] lidocaine [Lidoderm] 1 patch TOPICAL Q12H #0 12/23/16 07/09/20 metoprolol succinate 50 mg PO BID #0 12/23/16 07/09/20 omeprazole 20 mg PO BID #0 12/23/16 07/09/20 insulin glargine [Lantus Solostar 40 units BID #0 09/07/17 07/09/20 U-100 Insulin] clopidogrel 75 mg tablet 75 mg PO DAILY 03/31/18 07/09/20 loratadine 10 mg tablet 10 mg PO DAILY 03/31/18 07/09/20 ResMed AirCurve 10 BIPAP #1 ea 09/22/18 07/09/20 oxycodone 10 mg tablet,crush 10 mg PO BEDTIME tab 10/28/18 07/09/20 resistant,extended release 12 hr Previous Rx's Medication Instructions Recorded oxycodone 10 mg PO QIDP PRN #30 tab 12/23/16 pyridostigmine bromide [Mestinon] 60 mg PO TID #275 tab 09/07/17 naloxone 4 mg/actuation nasal spray 1 spray NASAL ONCE PRN #2 each MDD 09/26/18 2 sprays fluticasone propionate 50 2 spray NASAL DAILY #47.4 gram 08/26/20 mcg/actuation nasal spray,suspension Allergies Allergy/AdvReac Type Severity Reaction Status Date / Time ciprofloxacin [From CIPRO] Allergy Severe CAN'T TAKE Verified 12/30/18 15:26 BECAUSE OF MYASTHENIA GRAVIS ibuprofen [IBUPROFEN] Allergy Intermediate Verified 12/30/18 15:26 NSAIDS (Non-Steroidal Allergy Mild Verified 12/30/18 15:26 Anti-Inflamma [NSAIDS (NON-STEROIDAL ANTI-INFLAMMA] Review of Systems Review of Systems ROS Unobtainable: All systems reviewed & are unremarkable except as noted in HPI and below Constitutional Constitutional: Denies chills, Reports fever(s), Denies lethargy and Reports weakness Eyes Eyes: Denies change in vision, Denies eye discharge, Denies irritation and Denies loss of vision Cardiovascular Cardiovascular: Denies chest pain, Reports irregular heart rhythm, Denies lightheadedness, Denies palpitations, Reports dyspnea on exertion and Denies orthopnea Respiratory Respiratory: Denies cough, Denies pain with cough and Reports dyspnea on exertion Gastrointestinal Gastrointestinal: Denies abdominal pain, Denies change in bowel habits, Denies diarrhea, Denies nausea and Denies vomiting Musculoskeletal Musculoskeletal: Denies back pain and Denies myalgias Integumentary/Breasts Skin/Breast: Denies pruritus, Denies erythema, Denies rash and Denies wounds Neurologic Neurologic: Denies loss of vision and Reports weakness Endocrine Endocrine: Denies palpitations Patient History Medical History Benign prostatic hyperplasia Chronic pain Depression Excessive daytime sleepiness H/O ischemic heart disease Hearing difficulty of right ear Hiatal hernia History of lower GI bleeding Hx of transient ischemic attack (TIA) Hx of upper gastrointestinal hemorrhage Hypercholesteremia Hypertension Morbid obesity with body mass index of 40.0-49.9 Myasthenia gravis Obstructive sleep apnea of adult Opioid dependence with current use Primary insomnia Snoring Spondylolysis, cervical region Spondylosis of lumbar spine Type 2 diabetes mellitus Surgical History History of lumbosacral spine surgery Hx of cataract removal with insertion of prosthetic lens S/P CABG x 3 Social History marital status: details: constanza Castro for 50+ yrs, lives in [place] number of children: 2 household members: spouse lives independently: Yes caregiver/support person: Yes () housing: apartment education level: college occupational status: previously employed Smoking Status: Former smoker alcohol intake: former Smoking Status: Former smoker alcohol intake frequency: 0-2 drinks per day Substance Use Type: does not use Exam Initial Vital Signs Initial Vital Signs: Vital Signs Temperature 100.8 F H 08/29/20 00:34 Pulse Rate 122 H 08/29/20 00:34 Respiratory Rate 24 08/29/20 00:34 Blood Pressure 134/62 08/29/20 00:34 Pulse Oximetry 96 08/29/20 00:34 GENERAL: Alert 80-year-old male and in no acute distress. HEENT: Head atraumatic,EOMI, pupils reactive, face symmetric, moist mucous membranes CARDIOVASCULAR: Irregularly irregular RESPIRATORY: Breath sounds equal bilaterally, no wheezes rales or rhonchi. ABDOMEN: Soft, nontender. Normoactive bowel sounds all 4 quadrants. No guarding or rebound. EXTREMITIES: Normal range of motion, no clubbing or edema. Neurovascularly intact NEUROLOGICAL: Alert and oriented x4.Normal gait and speech. Cranial nerves II through XII grossly intact. SKIN: Warm, dry, no laceration, no petechiae, no rashes or lesions. Procedures Central Line Placement Right Femoral: Time Out Performed: Yes Patient Placed on Monitor/Pulse Ox: Yes MD Prep: mask, gown and gloves Central Line Prep: Chlorhexidine scrub and sterile drapes applied Local Anesthetic: lidocaine 1% Ultrasound Used for Placement: Yes Central Line Lumen Inserted: triple Post Procedure: sutured in place Patient Tolerated Procedure: Well Complications: none Course Orders Ordered: ED Orders 08/29/20 00:30 COVID19 Stat 08/29/20 00:38 EKG-12 Lead Stat 08/29/20 00:55 Complete Blood Count AUTO DIFF Stat Comprehensive Metabolic Panel Stat Lactate (Lactic Acid) Stat Lipase Stat NT-proBNP (BNP-Adult 18+) Stat Partial Thromboplastin Time Stat Procalcitonin Stat Prothrombin Time INR Stat Troponin & CK Cardiac Panel Stat 08/29/20 01:00 XR chest 1V Stat 08/29/20 01:03 Blood Culture Stat 08/29/20 02:20 Ictotest Urine Stat Urinalysis and Microscopic Stat Urine Culture Stat 08/29/20 02:58 Troponin I Stat 08/29/20 03:51 US abdomen limited Stat 08/29/20 05:28 CT chest abd pel w con Stat Sodium Chloride (Normal Saline 0.9%) 2,466 mls @ 822 mls/hr 30 ml/kg infuse over 3 hr (2466 ml) IV NOW ONE Stop: 08/29/20 06:52 Last Infusion: 08/29/20 06:19 Dose: 0 mls/hr Documented by: Admin: 08/29/20 04:02 Dose: 822 mls/hr Documented by: LAURENCE Norepinephrine Bitartrate 4 mg (/ Dextrose) 254 mls @ 30.48 mls/hr IV TITRATE ALESHA; Protocol Last Titration: 08/29/20 06:40 Dose: 6 mcg/min, 22.86 mls/hr Documented by: Titration: 08/29/20 05:34 Dose: 8.01 mcg/min, 30.5 mls/hr Documented by: Titration: 08/29/20 05:02 Dose: 3.94 mcg/min, 15 mls/hr Documented by: Admin: 08/29/20 04:25 Dose: 8 mcg/min, 30.48 mls/hr Documented by: LAURENCE Discontinued Medications Acetaminophen (Acetaminophen 325 Mg Tablet) 975 mg PO NOW ONE Stop: 08/29/20 01:10 Last Admin: 08/29/20 01:20 Dose: 975 mg Documented by: LAURENCE Piperacillin/Tazobactam/Dextrose (Zosyn) 3.375 gm in 50 mls @ 100 mls/hr IV NOW ONE Stop: 08/29/20 02:31 Last Infusion: 08/29/20 02:45 Dose: 0 mls/hr Documented by: Admin: 08/29/20 02:07 Dose: 100 mls/hr Documented by: LAURENCE Sodium Chloride (Normal Saline 0.9%) 1,000 mls @ 1,000 mls/hr IV BOLUS ONE Stop: 08/29/20 03:41 Last Admin: 08/29/20 04:04 Dose: Not Given Documented by: LAURENCE Metoprolol Tartrate (Metoprolol Tartrate 5 Mg/5 Ml Inj) 5 mg IV NOW ONE Stop: 08/29/20 02:00 Last Admin: 08/29/20 02:07 Dose: 5 mg Documented by: LAURENCE Morphine Sulfate (Morphine 2 Mg/Ml Inj) 2 mg IV NOW ONE Stop: 08/29/20 05:07 Last Admin: 08/29/20 05:10 Dose: 2 mg Documented by: LAURENCE Vital Signs Vital signs: Vital Signs - 8 hr 08/29/20 00:34 08/29/20 00:51 08/29/20 01:00 Temperature 100.8 F H Pulse Rate 122 H 125 H 125 H Respiratory Rate 24 24 24 Blood Pressure 134/62 Pulse Oximetry 96 97 97 08/29/20 01:04 08/29/20 01:20 08/29/20 01:30 Temperature 100.3 F H Pulse Rate 125 H 126 H Respiratory Rate 24 26 H Blood Pressure 128/60 117/56 L Pulse Oximetry 98 90 L 08/29/20 02:00 08/29/20 02:30 08/29/20 02:31 Temperature Pulse Rate 121 H 127 H 126 H Respiratory Rate 36 H 26 H 22 Blood Pressure 95/58 L 127/56 L Pulse Oximetry 90 L 95 95 08/29/20 02:46 08/29/20 03:00 08/29/20 03:01 Temperature 100.2 F H Pulse Rate 125 H 125 H Respiratory Rate 28 H 31 H Blood Pressure 105/74 Pulse Oximetry 97 81 L 08/29/20 03:30 08/29/20 03:31 08/29/20 03:33 Temperature Pulse Rate 93 H 89 94 H Respiratory Rate 23 32 H 25 H Blood Pressure 68/36 L 80/40 L Pulse Oximetry 96 96 99 08/29/20 03:37 08/29/20 03:43 08/29/20 03:48 Temperature Pulse Rate 124 H 115 H 125 H Respiratory Rate 25 H 23 26 H Blood Pressure 74/38 L 73/34 L 112/52 L Pulse Oximetry 96 96 96 08/29/20 03:50 08/29/20 03:55 08/29/20 04:00 Temperature Pulse Rate 124 H 115 H 120 H Respiratory Rate 22 24 23 Blood Pressure 102/51 L 101/51 L Pulse Oximetry 97 97 97 08/29/20 04:05 08/29/20 04:10 08/29/20 04:11 Temperature Pulse Rate 124 H 124 H 124 H Respiratory Rate 34 H 30 H 23 Blood Pressure 93/54 L 75/43 L Pulse Oximetry 95 97 81 L 08/29/20 04:15 08/29/20 04:16 08/29/20 04:20 Temperature Pulse Rate 120 H 119 H 118 H Respiratory Rate 29 H 28 H 45 H Blood Pressure 118/56 L 114/56 L Pulse Oximetry 97 96 97 08/29/20 04:25 08/29/20 04:30 08/29/20 04:31 Temperature Pulse Rate 111 H 124 H 104 H Respiratory Rate 43 H 18 22 Blood Pressure 114/54 L 116/54 L Pulse Oximetry 98 94 95 08/29/20 04:35 08/29/20 04:40 08/29/20 04:45 Temperature Pulse Rate 105 H 116 H 119 H Respiratory Rate 24 25 H 25 H Blood Pressure 116/57 L 114/58 L Pulse Oximetry 97 97 97 08/29/20 04:49 08/29/20 04:50 08/29/20 04:55 Temperature Pulse Rate 119 H 119 H 118 H Respiratory Rate 24 27 H 24 Blood Pressure 122/56 L 125/58 L 119/56 L Pulse Oximetry 97 98 98 08/29/20 05:00 08/29/20 05:05 08/29/20 05:08 Temperature 98.1 F Pulse Rate 120 H 125 H Respiratory Rate 22 32 H Blood Pressure 119/63 Pulse Oximetry 98 08/29/20 05:10 08/29/20 05:11 08/29/20 05:15 Temperature Pulse Rate 120 H 118 H 119 H Respiratory Rate 48 H 50 H 50 H Blood Pressure 111/43 L Pulse Oximetry 08/29/20 05:16 Temperature Pulse Rate 119 H Respiratory Rate 50 H Blood Pressure 128/48 L Pulse Oximetry MDM - SOB/Dyspnea Lab Data Attestation: I reviewed the patient's lab results. Result diagrams: 08/29/20 00:55 08/29/20 00:55 Labs: Lab Results 08/29/20 08/29/20 08/29/20 Range/Units 00:30 00:55 00:55 WBC 8.1 (4.5-11.0) X10^3/uL RBC 3.56 L (4.5-5.9) X10^6/uL Hgb 11.0 L (13.5-17.5) g/dL Hct 33.5 L (41-53) % MCV 94.1 (80-100) fL MCH 30.9 (26-34) PG MCHC 32.8 (30-36) % RDW 13.2 (11.6-14.8) % Plt Count 195 (150-400) X10^3/uL Neut % (Auto) 94.2 H (50-75) % Lymph % (Auto) 1.8 L (25-40) % Runnels % (Auto) 3.7 (3-14) % Eos % (Auto) 0.1 L (2-4) % Baso % (Auto) 0.2 (0-2) % Neut # (Auto) 7600 H (1232-4004) /uL Lymph # (Auto) 100 L (3986-4210) /uL Runnels # (Auto) 300 (0-900) /uL Eos # (Auto) 0 (0-450) /uL Baso # (Auto) 0 (0-100) /uL PT (10.1-12.7) SECONDS INR (0.9-1.3) APTT (26.4-36.2) SECONDS Sodium 135 L (137-145) mmol/L Potassium 3.5 (3.4-5.1) mmol/L Chloride 106 (98-107) mmol/L Carbon Dioxide 29 (22-32) mmol/L BUN 22 H (9-20) mg/dL Creatinine 1.07 (0.66-1.25) mg/dL Estimated GFR > 60.0 (>60) mL/min BUN/Creatinine Ratio 20.6 (6-22) Glucose 154 H (80-110) mg/dL Lactate (0.7-2.1) mmol/L Calcium 9.3 (8.4-10.2) mg/dL Total Bilirubin 3.0 H (0.2-1.3) mg/dL AST 875 H (17-59) IU/L ALT 530 H (<50) IU/L Alkaline Phosphatase 262 H (38-126) U/L Total Creatine Kinase 151 (55-170) U/L CK-MB (CK-2) 1.49 (<2.37) ng/mL CK-MB (CK-2) Rel Index 1.0 L (1.5-5.0) % Troponin I 0.083 H (0.01-0.034) ng/mL NT-Pro-B Natriuret Pep (<450) pg/mL Total Protein 7.5 (6.3-8.2) g/dL Albumin 4.1 (3.5-5.0) g/dL Globulin 3.4 (1.7-4.1) g/dL Albumin/Globulin Ratio 1.2 (1.0-2.8) Lipase (23-300) U/L Procalcitonin (<0.5) ng/mL Urine Color Urine Appearance Urine pH (4.5-8.0) Ur Specific Custer (1.000-1.035) Urine Protein (Negative) Urine Glucose (UA) (Negative) g/dL Urine Ketones (NEGATIVE) Urine Occult Blood (Negative) Urine Nitrate (Negative) Urine Bilirubin (NEGATIVE) Ur Bilirubin Confirm (Negative) Urine Urobilinogen (0.2) E.U./dL Ur Leukocyte Esterase (NEGATIVE) Urine RBC (0-5/HPF) Urine WBC (0-5/HPF) Ur Squamous Epith Cells (0-5/HPF) Urine Bacteria (None) Hyaline Casts (None) Urine Mucus (Negative) Ur Culture Indicated? SARS-CoV-2 (PCR) Negative (Negative) 08/29/20 08/29/20 08/29/20 Range/Units 00:55 00:55 00:55 WBC (4.5-11.0) X10^3/uL RBC (4.5-5.9) X10^6/uL Hgb (13.5-17.5) g/dL Hct (41-53) % MCV (80-100) fL MCH (26-34) PG MCHC (30-36) % RDW (11.6-14.8) % Plt Count (150-400) X10^3/uL Neut % (Auto) (50-75) % Lymph % (Auto) (25-40) % Runnels % (Auto) (3-14) % Eos % (Auto) (2-4) % Baso % (Auto) (0-2) % Neut # (Auto) (5929-9324) /uL Lymph # (Auto) (8292-8056) /uL Runnels # (Auto) (0-900) /uL Eos # (Auto) (0-450) /uL Baso # (Auto) (0-100) /uL PT (10.1-12.7) SECONDS INR (0.9-1.3) APTT (26.4-36.2) SECONDS Sodium (137-145) mmol/L Potassium (3.4-5.1) mmol/L Chloride (98-107) mmol/L Carbon Dioxide (22-32) mmol/L BUN (9-20) mg/dL Creatinine (0.66-1.25) mg/dL Estimated GFR (>60) mL/min BUN/Creatinine Ratio (6-22) Glucose (80-110) mg/dL Lactate 1.8 (0.7-2.1) mmol/L Calcium (8.4-10.2) mg/dL Total Bilirubin (0.2-1.3) mg/dL AST (17-59) IU/L ALT (<50) IU/L Alkaline Phosphatase (38-126) U/L Total Creatine Kinase (55-170) U/L CK-MB (CK-2) (<2.37) ng/mL CK-MB (CK-2) Rel Index (1.5-5.0) % Troponin I (0.01-0.034) ng/mL NT-Pro-B Natriuret Pep 1220 H (<450) pg/mL Total Protein (6.3-8.2) g/dL Albumin (3.5-5.0) g/dL Globulin (1.7-4.1) g/dL Albumin/Globulin Ratio (1.0-2.8) Lipase (23-300) U/L Procalcitonin 3.61 H (<0.5) ng/mL Urine Color Urine Appearance Urine pH (4.5-8.0) Ur Specific Custer (1.000-1.035) Urine Protein (Negative) Urine Glucose (UA) (Negative) g/dL Urine Ketones (NEGATIVE) Urine Occult Blood (Negative) Urine Nitrate (Negative) Urine Bilirubin (NEGATIVE) Ur Bilirubin Confirm (Negative) Urine Urobilinogen (0.2) E.U./dL Ur Leukocyte Esterase (NEGATIVE) Urine RBC (0-5/HPF) Urine WBC (0-5/HPF) Ur Squamous Epith Cells (0-5/HPF) Urine Bacteria (None) Hyaline Casts (None) Urine Mucus (Negative) Ur Culture Indicated? SARS-CoV-2 (PCR) (Negative) 08/29/20 08/29/20 08/29/20 Range/Units 00:55 00:55 02:20 WBC (4.5-11.0) X10^3/uL RBC (4.5-5.9) X10^6/uL Hgb (13.5-17.5) g/dL Hct (41-53) % MCV (80-100) fL MCH (26-34) PG MCHC (30-36) % RDW (11.6-14.8) % Plt Count (150-400) X10^3/uL Neut % (Auto) (50-75) % Lymph % (Auto) (25-40) % Runnels % (Auto) (3-14) % Eos % (Auto) (2-4) % Baso % (Auto) (0-2) % Neut # (Auto) (3206-5662) /uL Lymph # (Auto) (7388-4590) /uL Runnels # (Auto) (0-900) /uL Eos # (Auto) (0-450) /uL Baso # (Auto) (0-100) /uL PT 17.3 H (10.1-12.7) SECONDS INR 1.5 H (0.9-1.3) APTT 32 (26.4-36.2) SECONDS Sodium (137-145) mmol/L Potassium (3.4-5.1) mmol/L Chloride (98-107) mmol/L Carbon Dioxide (22-32) mmol/L BUN (9-20) mg/dL Creatinine (0.66-1.25) mg/dL Estimated GFR (>60) mL/min BUN/Creatinine Ratio (6-22) Glucose (80-110) mg/dL Lactate (0.7-2.1) mmol/L Calcium (8.4-10.2) mg/dL Total Bilirubin (0.2-1.3) mg/dL AST (17-59) IU/L ALT (<50) IU/L Alkaline Phosphatase (38-126) U/L Total Creatine Kinase (55-170) U/L CK-MB (CK-2) (<2.37) ng/mL CK-MB (CK-2) Rel Index (1.5-5.0) % Troponin I (0.01-0.034) ng/mL NT-Pro-B Natriuret Pep (<450) pg/mL Total Protein (6.3-8.2) g/dL Albumin (3.5-5.0) g/dL Globulin (1.7-4.1) g/dL Albumin/Globulin Ratio (1.0-2.8) Lipase 642 H (23-300) U/L Procalcitonin (<0.5) ng/mL Urine Color Dark yellow Urine Appearance Clear Urine pH 5.5 (4.5-8.0) Ur Specific Custer 1.010 (1.000-1.035) Urine Protein 1+ H (Negative) Urine Glucose (UA) Trace H (Negative) g/dL Urine Ketones Negative (NEGATIVE) Urine Occult Blood 3+ H (Negative) Urine Nitrate Negative (Negative) Urine Bilirubin 2+ H (NEGATIVE) Ur Bilirubin Confirm Positive H (Negative) Urine Urobilinogen 0.2 (0.2) E.U./dL Ur Leukocyte Esterase Trace H (NEGATIVE) Urine RBC 30-100/hpf H (0-5/HPF) Urine WBC 0-1/hpf (0-5/HPF) Ur Squamous Epith Cells 0-1 /hpf (0-5/HPF) Urine Bacteria Occasional (0-1) (None) Hyaline Casts 0-1/lpf (None) Urine Mucus 1+ H (Negative) Ur Culture Indicated? Specimen cultured SARS-CoV-2 (PCR) (Negative) 08/29/20 Range/Units 02:58 WBC (4.5-11.0) X10^3/uL RBC (4.5-5.9) X10^6/uL Hgb (13.5-17.5) g/dL Hct (41-53) % MCV (80-100) fL MCH (26-34) PG MCHC (30-36) % RDW (11.6-14.8) % Plt Count (150-400) X10^3/uL Neut % (Auto) (50-75) % Lymph % (Auto) (25-40) % Runnels % (Auto) (3-14) % Eos % (Auto) (2-4) % Baso % (Auto) (0-2) % Neut # (Auto) (6017-5717) /uL Lymph # (Auto) (6630-3626) /uL Runnels # (Auto) (0-900) /uL Eos # (Auto) (0-450) /uL Baso # (Auto) (0-100) /uL PT (10.1-12.7) SECONDS INR (0.9-1.3) APTT (26.4-36.2) SECONDS Sodium (137-145) mmol/L Potassium (3.4-5.1) mmol/L Chloride (98-107) mmol/L Carbon Dioxide (22-32) mmol/L BUN (9-20) mg/dL Creatinine (0.66-1.25) mg/dL Estimated GFR (>60) mL/min BUN/Creatinine Ratio (6-22) Glucose (80-110) mg/dL Lactate (0.7-2.1) mmol/L Calcium (8.4-10.2) mg/dL Total Bilirubin (0.2-1.3) mg/dL AST (17-59) IU/L ALT (<50) IU/L Alkaline Phosphatase (38-126) U/L Total Creatine Kinase (55-170) U/L CK-MB (CK-2) (<2.37) ng/mL CK-MB (CK-2) Rel Index (1.5-5.0) % Troponin I 0.165 H* (0.01-0.034) ng/mL NT-Pro-B Natriuret Pep (<450) pg/mL Total Protein (6.3-8.2) g/dL Albumin (3.5-5.0) g/dL Globulin (1.7-4.1) g/dL Albumin/Globulin Ratio (1.0-2.8) Lipase (23-300) U/L Procalcitonin (<0.5) ng/mL Urine Color Urine Appearance Urine pH (4.5-8.0) Ur Specific Custer (1.000-1.035) Urine Protein (Negative) Urine Glucose (UA) (Negative) g/dL Urine Ketones (NEGATIVE) Urine Occult Blood (Negative) Urine Nitrate (Negative) Urine Bilirubin (NEGATIVE) Ur Bilirubin Confirm (Negative) Urine Urobilinogen (0.2) E.U./dL Ur Leukocyte Esterase (NEGATIVE) Urine RBC (0-5/HPF) Urine WBC (0-5/HPF) Ur Squamous Epith Cells (0-5/HPF) Urine Bacteria (None) Hyaline Casts (None) Urine Mucus (Negative) Ur Culture Indicated? SARS-CoV-2 (PCR) (Negative) Imaging Data Chest x-ray: Radiologist's Impression: No acute findings CT scan - abdomen/pelvis: Radiologist's Impression: Chest abdomen pelvis: Preliminary report cholelithiasis. Cholecystic fluid and probable gallbladder wall thickening which was also noted on ultrasound performed same day. Although the patient did not have positive sonographic Hamlin sign during ultrasound examination and did not meet also a graphic criteria for acute cholecystitis a TT findings in conjunction with the ultrasound findings are suspicious for acute cholecystitis. Chest CT is thyroid gland is normal there is no mediastinal hilar or axillary adenopathy. No pericardial or pleural effusion. Postsurgical findings of CABG. Thoracic aorta is of normal caliber small hiatal hernia. Lung windows demonstrate pleural parenchymal scarring at the lung apices ECG Data Attestation: I personally reviewed and interpreted this ECG as follows: Prior ECG tracings: available for review Interpretation: Atrial flutter rate [address] changes right bundle branch block noted similar to previous EKG in 2018 MDM Narrative Medical decision making narrative: Patient is found to be febrile with leukocytosis he denies any abdominal pain nausea or vomiting but liver enzymes and bilirubin are significantly elevated. I have again re-examined in and he has a negative Hamlin sign. He continues to try and roll over onto his side because it is position of comfort. He initially was given 1 dose of metoprolol to see if it would help with his atrial flutter. His blood pressure decreased some but quickly came back off. However started to decrease of again. Patient is awake and alert and trying to get comfortable in the bed. Did respond to IV fluids, initially but it dropped again. Central line was placed. Due to abnormal neck and matted me along with patient unable to be in position right femoral was placed. Levophed started. We actually tried to wean Levophed from 8 mics to for and his blood pressure again dropped to a systolic of 70. 5:20am Dr. Pfeiffer deboning team leader at [facility] accepts patient for transfer Critical Care Time Critical Care Time Critical Care Time: Yes Total Critical Care Time: 30 Attestation: The high probability of a clinically significant, sudden or life threatening deterioration of the [cardiovascular] system(s) required my full and direct attention, intervention and personal management. The aggregate critical care time was 30 minutes. This time is in addition to time spent performing reported procedures but includes the following: [x] Data Review and interpretation [x] Patient assessment and monitoring of vital signs [x] Documentation [x] Medication orders and management Discharge Plan Departure Patient Disposition: [facility] Clinical Impression: Septic shock, Cholelithiasis and acute cholecystitis with obstruction Prescriptions: No Action pioglitazone [Actos] 45 MG tablet 45 mg PO QDAY Qty: 0 RF: 0 triamterene-hydrochlorothiazid 75 MG/50 MG tablet 1 tab PO DAILY Qty: 0 RF: 0 lisinopril 10 MG tablet 10 mg PO QDAY Qty: 0 RF: 0 sertraline [Zoloft] 50 MG tablet 50 mg PO QDAY Qty: 0 RF: 0 simvastatin [Zocor] 40 MG tablet 40 mg PO HS Qty: 0 RF: 0 finasteride 5 MG tablet 5 mg PO QDAY Qty: 0 RF: 0 ferrous sulfate 325 mg (65 mg iron) Tablet 325 mg PO QDAY Qty: 0 RF: 0 vitamin E 400 unit Capsule 400 units PO QDAY Qty: 0 RF: 0 vitamin B complex Capsule 1 cap PO DAILY Qty: 0 RF: 0 multivitamin Tablet 1 tab PO DAILY Qty: 0 RF: 0 fluticasone propion-salmeterol [Advair Diskus] 250 MCG/50 MCG blister with device 1 puff INH BID Qty: 0 RF: 0 insulin aspart U-100 [Novolog U-100 Insulin aspart] 100 UNIT/1 ML solution 0 unit SQ QIDACHS Qty: 0 RF: 0 metoprolol succinate 100 MG tablet extended release 24 hr 50 mg PO BID Qty: 0 RF: 0 lidocaine [Lidoderm] 1 EACH adhesive patch,medicated 1 patch Topical Q12H Qty: 0 RF: 0 doxazosin 4 MG tablet 12 mg PO HS Qty: 0 RF: 0 omeprazole 20 MG tablet,delayed release (DR/EC) 20 mg PO BID Qty: 0 RF: 0 oxycodone 5 MG tablet 10 mg PO QIDP PRNQty: 30 RF: 0 insulin glargine [Lantus Solostar U-100 Insulin] 100 UNIT/1 ML insulin pen 40 units BID Qty: 0 RF: 0 pyridostigmine bromide [Mestinon] 60 MG tablet 60 mg PO TID Qty: 275 RF: 3 fluticasone propionate [Allergy Relief (fluticasone)] 50 mcg/actuation spray,suspension 2 spray NASAL DAILY Qty: 47.4 RF: 3 clopidogrel 75 mg tablet 75 mg PO DAILY RF: 0 loratadine [Claritin] 10 mg tablet 10 mg PO DAILY RF: 0 (DME) [employer] 10 BIPAP Qty: 1 RF: 0 naloxone 4 mg/actuation spray,non-aerosol 1 spray NASAL ONCE MDD 2 sprays PRN (Reason: Opioid Reversal: Respiratory Depression) Qty: 2 RF: 0 oxycodone 10 mg tablet,oral only,ext.rel.12 hr 10 mg PO BEDTIME RF: 0 Referrals: Marin Hewitt MD [Primary Care Provider] -
[2020-08-29 01:15] LABS: Add Manual Diff / Slide Review NO; Basophils Absolute Auto 0 /uL (0-100); Basophils Percent Auto 0.2 % (0-2); Eosinophils Absolute Auto 0 /uL (0-450); Eosinophils Percent Auto 0.1 % (2-4); Hematocrit 33.5 % (41-53); Lymphocytes Absolute Auto 100 /uL (1100-4500); Lymphocytes Percent Auto 1.8 % (25-40); Mean Corpuscular HGB Conc 32.8 % (30-36); Mean Corpuscular Hemoglobin 30.9 PG (26-34); Mean Corpuscular Volume 94.1 fL (80-100); Monocytes Absolute Auto 300 /uL (0-900); Monocytes Percent Auto 3.7 % (3-14); Neutrophils Absolute Auto 7600 /uL (1500-7000); Neutrophils Percent Auto 94.2 % (50-75); Platelet Count 195 X10^3/uL (150-400); Red Blood Cell Count 3.56 X10^6/uL (4.5-5.9); Red Cell Distribution Width 13.2 % (11.6-14.8); White Blood Cell Count 8.1 X10^3/uL (4.5-11.0)
[2020-08-29] MEDS: ACETAMINOPHEN 325 MG TABLET 975 MG PO (01:20)
[2020-08-29 01:25] LABS: COVID19 -Nasal RAPID Negative (Negative)
[2020-08-29 01:26] LABS: Lactate (Lactic Acid) 1.8 mmol/L (0.7-2.1)
[2020-08-29 01:27] LABS: Alanine Aminotransferase 530 IU/L (<50); Albumin 4.1 g/dL (3.5-5.0); Albumin Globulin Ratio 1.2 (1.0-2.8); Alkaline Phosphatase 262 U/L (38-126); BUN Creatinine Ratio 20.6 (6-22); Blood Urea Nitrogen 22 mg/dL (9-20); Calcium 9.3 mg/dL (8.4-10.2); Carbon Dioxide 29 mmol/L (22-32); Chloride 106 mmol/L (98-107); Creatine Kinase 151 U/L (55-170); Estimated Glomerular Filt Rate > 60.0 mL/min (>60); Globulin 3.4 g/dL (1.7-4.1); Glucose 154 mg/dL (80-110); HEMOLYSIS < 15 (0-50); Potassium 3.5 mmol/L (3.4-5.1); Sodium 135 mmol/L (137-145); Total Protein 7.5 g/dL (6.3-8.2)
[2020-08-29 01:36] LABS: NT-proBNP (BNP-Adult 18+) 1220 pg/mL (<450)
[2020-08-29 01:37] LABS: Aspartate Aminotransferase 875 IU/L (17-59)
[2020-08-29 01:39] LABS: Troponin I 0.083 ng/mL (0.01-0.034)
[2020-08-29 01:41] LABS: Procalcitonin 3.61 ng/mL (<0.5)
[2020-08-29 01:44] LABS: Creatine Kinase MB 1.49 ng/mL (<2.37)
[2020-08-29] MEDS: PIPERACILLIN-TAZO 3.375 GM/50 ML FROZ.PIGGY IV (02:07)
[2020-08-29] MEDS: METOPROLOL TARTRATE 5 MG/5 ML INJ IV (02:07)
[2020-08-29 02:34] LABS: Appearance Urine UA CLEAR; Bilirubin Urine UA 2+ (NEGATIVE); Color Urine UA Dark Yellow; Glucose Urine UA TRACE g/dL (Negative); Ketones Urine UA NEGATIVE (NEGATIVE); Leukocyte Esterase Urine UA TRACE (NEGATIVE); Nitrite Urine UA NEGATIVE (Negative); Occult Blood Urine UA 3+ (Negative); Protein Urine UA 1+ (Negative); Urobilinogen Urine UA 0.2 E.U./dL (0.2); pH Urine UA 5.5 (4.5-8.0)
[2020-08-29 02:35] LABS: Ictotest Urine Positive (Negative)
[2020-08-29 02:41] LABS: RBC Urine 30-100/HPF (0-5/HPF); Squamous Epithelial Cell Urine 0-1 /HPF (0-5/HPF); WBC Urine 0-1/HPF (0-5/HPF)
[2020-08-29 02:42] LABS: Bacteria Urine Occasional (0-1); Culture Indicated Urine Specimen Cultured; Hyaline Casts Urine 0-1/LPF; Mucus Urine 1+ (Negative)
[2020-08-29 03:35] LABS: Troponin I 0.165 ng/mL (0.01-0.034)
--- NOTE | 2020-08-29 03:51 | DI.US.S_ITS ---
PROCEDURE: US ABDOMEN LIMITED INDICATIONS: RUQ PAIN TECHNIQUE: Real-time focused scanning was performed of the abdomen, with image documentation. COMPARISON: None. FINDINGS: Liver is enlarged to 22.8 centimeters in long axis. Liver has normal echotexture. Gallbladder sludge and small stones noted. Gallbladder wall is slightly thickened measuring 3.4 millimeters. Pericholecystic fluid noted. No sonographic Hamlin sign reported. Fern a biliary tree is nondilated. Common bile duct measures 5.1 millimeters. IMPRESSION: Cholelithiasis with mild gallbladder wall thickening and pericholecystic fluid concerning for acute cholecystitis. Dictated by: Esther Murphy MD, PhD on 08/29/2020 at 8:44 Approved by: Esther Murphy MD, PhD on 08/29/2020 at 8:46
[2020-08-29] MEDS: SODIUM CHLORIDE 0.9% 2,466 ML 822 ML IV (04:02)
[2020-08-29 04:03] LABS: INR 1.5 (0.9-1.3); Prothrombin Time 17.3 SECONDS (10.1-12.7)
[2020-08-29 04:06] LABS: Lipase 642 U/L (23-300); PTT Partial Thromboplastin Tim 32 SECONDS (26.4-36.2)
[2020-08-29] MEDS: NOREPINEPHRINE 4 MG in DEXTROSE 5% IN WATER 250 ML 30.48 ML IV (04:25)
[2020-08-29] MEDS: MORPHINE 2 MG/ML INJ IV (05:10)
--- NOTE | 2020-08-29 05:28 | DI.CT.S_ITS ---
PROCEDURE: CT CHEST ABD PEL W CON INDICATIONS: sepsis gallbladder TECHNIQUE: After the administration of oral and intravenous contrast, 5 mm thick sections acquired from the lung apices to the symphysis. 5 mm coronal and sagittal reformats were performed, with additional 7 mm coronal MIP reformats through the lungs. For radiation dose reduction, the following was used: automated exposure control, adjustment of mA and/or kV according to patient size. COMPARISON: [facility], , US ABDOMEN LIMITED, 08/29/2020, 4:18. FINDINGS: Image quality: Excellent. CHEST: Lungs and pleura: Minor bibasilar atelectatic changes. 2 mm right upper lobe lung nodule in the subpleural posterolateral right upper lobe 4/122, and 2 mm left upper lobe nodule lateral left upper lobe 4/120. No acute airspace opacities. No pleural effusions or pneumothorax. Central and peripheral airways appear patent and normal in caliber. Mediastinum: Heart size is normal. Post CABG changes and moderate [place] coronary artery calcification. No pericardial effusion. No mediastinal or hilar adenopathy by size criteria. Thoracic aorta and central pulmonary arteries are normal in size. Esophagus is normal in caliber. No hiatal hernia. Chest wall: Median sternotomy changes are present. No axillary or supraclavicular adenopathy by size criteria. Thyroid gland appears normal . ABDOMEN: Solid organs: Liver is mildly enlarged and has a slightly lobulated contour. There are several tiny round dense calcifications layering dependently in the gallbladder. The wall is thickened and there is mild pericholecystic fluid and trace pericholecystic inflammation. Biliary system is non dilated. Pancreas enhances normally. Spleen is normal in size and enhancement. No adrenal nodules. Kidneys demonstrate normal size and enhancement, without hydronephrosis. Moderate, nonspecific bilateral perinephric inflammation. There is a 7 mm cortical calcification in the midpole of the right kidney. No collecting system calcifications. Peritoneum and bowel: Bowel loops demonstrate normal wall thickness and caliber. Moderate sigmoid diverticulosis and occasional diverticulosis elsewhere throughout the colon. Normal appendix. No free fluid or air. Nodes and vessels: No retroperitoneal or mesenteric adenopathy by size criteria. Aorta and inferior vena cava are normal in size. Moderate abdominal aortic atherosclerotic calcification. Miscellaneous: Moderate-sized fat containing umbilical hernia. PELVIS: Genitourinary: Bladder wall thickness is normal. Coarse prostatic calcifications. Miscellaneous: No inguinal hernias or adenopathy. There is a right femoral venous line in place. Bones: No suspicious bony lesions. Multilevel spondylosis in the thoracic and lumbar spine. No vertebral body compression fractures. IMPRESSION: 1. Cholelithiasis and mild pericholecystic inflammatory changes raising suspicion of acute cholecystitis. 2. Cirrhotic liver morphology. 3. There are two 2 mm nonspecific upper lobe lung nodules. Follow-up chest CT in one year is recommended. 4. Fat containing umbilical hernia. 5. Concordant with preliminary report. Dictated by: Alice Cooley M.D. on 08/29/2020 at 8:35 Approved by: Alice Cooley M.D. on 08/29/2020 at 8:55
[2020-08-29 16:46] LABS: Acinetobacter baumannii Not Detected (Not Detect); Enterococcus species Not Detected (Not Detect); Listeria monocytogenes Not Detected (Not Detect); Methicillin-resistant gene Not Detected (Not Detect); Staphylococcus species Not Detected (Not Detect); Streptococcus agalactiae (Gr B Not Detected (Not Detect); Streptococcus pneumonia Not Detected (Not Detect); Streptococcus pyogenes (Gr A) Not Detected (Not Detect); Streptococcus species Not Detected (Not Detect); Vancomycin-rest genes A/B Not Detected (Not Detect)
[2020-08-29 16:47] LABS: Candida albicans Not Detected (Not Detect); Candida glabrata Not Detected (Not Detect); Candida krusei Not Detected (Not Detect); Candida parapsilosis Not Detected (Not Detect); Candida tropicalis Not Detected (Not Detect); E. coli Not Detected (Not Detect); Enterobacter cloacae complex Not Detected (Not Detect); Enterobacteriaceae species Detected (Not Detect); Haemophilus influenzae Not Detected (Not Detect); KPC (carbapenem-resist gene) Not Detected (Not Detect); Neisseria meningitidis Not Detected (Not Detect); Proteus species Not Detected (Not Detect); Pseudomonas aeruginosa Not Detected (Not Detect); Serratia marcescens Not Detected (Not Detect)
== END 2020-08-29 07:15 | disposition short-term general hospital (02) ==
PROVIDERS: Emergency Provider Emergency Medicine; PCP Family Medicine
DX: K80.01 Calculus of gallbladder with acute cholecystitis with obstruction (principal); A41.9 Sepsis, unspecified organism; R94.5 Abnormal results of liver function studies; R79.89 Other specified abnormal findings of blood chemistry; I95.9 Hypotension, unspecified; I48.92 Unspecified atrial flutter; R53.1 Weakness; R50.9 Fever, unspecified; I10 Essential (primary) hypertension; E11.9 Type 2 diabetes mellitus without complications; N40.0 Benign prostatic hyperplasia without lower urinary tract symptoms; Z20.822 Contact with and (suspected) exposure to COVID-19
CPT/HCPCS: 36415; 36573; 71045; 71260; 74177; 76705; 80053; 81001; 82550; 82553; 83605; 83690; 83880; 84145; 84484; 85025; 85610; 85730; 87040; 87086; 87150; 87186; 87205; 87635; 93005; 93010; 96365; 96366; 96367; 96375; 99284; 99291; C9803; J2270; J2543; Q9967